=== PATIENT | female | born 1930 | race Caucasian/White ===

== ENCOUNTER 2019-01-01 00:58 | Inpatient (IN) ==
[2019-01-01 01:25] LABS: Basophils # 0.1 K/mm3 (0-0.2); Basophils % 0.7 % (0.1-2.0); Eosinophils # 0.2 K/mm3 (0.0-0.4); Eosinophils % 1.4 % (0.1-12.0); Hematocrit 36.4 % (37.0-47.0); Hemoglobin 11.8 g/dL (12.2-16.2); Lymphocytes % 18.1 % (10-50); Mean Corpuscular HGB Conc 32.4 g/dL (31.8-35.4); Mean Corpuscular Hemoglobin 31.7 pg (27.0-31.2); Mean Corpuscular Volume 97.8 fl (81-99); Monocytes # 0.6 K/mm3 (0.1-1.0); Monocytes % 5.5 % (1.7-9.3); Neutrophils # 8.1 K/mm3 (1.8-7.8); Neutrophils % 74.3 % (37.0-80.0); Platelet Count 192 K/mm3 (142-424); Red Blood Count 3.72 M/mm3 (4.20-5.40); Red Cell Distribution Width 13.1 % (11.5-17.5); White Blood Count 10.9 K/mm3 (4.8-10.8)
[2019-01-01 01:37] LABS: Albumin Level 3.2 gm/dL (3.4-5.0); Albumin/Globulin Ratio 0.8 (1.1-1.8); Anion Gap 11.9 mEq/L (5-15); Bilirubin,Total 0.5 mg/dL (0.2-1.0); Calcium 8.8 mg/dL (8.5-10.1); Globulin 4.1 gm/dl (1.3-3.2); Potassium 3.9 mmoL/L (3.5-5.1); Total Protein,Serum 7.3 gm/dL (6.4-8.2)
--- NOTE | 2019-01-01 01:40 | Emergency Department Note ---
ED Disposition Clinical Impression: History of cardiac pacemaker in situ Hip fracture Qualifiers: Encounter type: initial encounter Fracture type: closed Laterality: left Qualified Code(s): S72.002A - Fracture of unspecified part of neck of left femur, initial encounter for closed fracture Fall Qualifiers: Encounter type: initial encounter Qualified Code(s): W19.XXXA - Unspecified fall, initial encounter CKD (chronic kidney disease) Qualifiers: Chronic kidney disease stage: unspecified stage Qualified Code(s): N18.9 - Chronic kidney disease, unspecified Disposition: Admitted As Inpatient Condition on Discharge: Good - Critical Care Critical Care Time: No Attestation: On , the high probability of a clinically significant, sudden or life th reatening deterioration of the following system(s) required my full and direct attention, intervention and personal management. The time I documented below is in addition to time spent performing reported procedures but includes the following listed in this critical care notation. Medical Decision Making - Medical Records Medical records reviewed: Yes: I reviewed the patient's medical records. - Carlo Inquiry Pt receiving controlled substance: No Vital Signs: 01/01/19 00:59 01/01/19 01:30 Temperature 97.9 F Temperature Source Oral Pulse Rate [Right Brachial] 71 71 Respiratory Rate 16 16 Blood Pressure [Right Arm] 176/63 H 180/71 H Blood Pressure Mean [Right Arm] 100 107 Blood Pressure Source [Right Arm] Automatic Cuff Automatic Cuff Blood Pressure Position [Right Arm] Sitting Sitting 02 Sat by Pulse Oximetry 96 96 Oxygen Delivery Method Room Air Room Air - Lab Data Lab results reviewed: Yes: I reviewed the patient's lab results. Lab Results 01/01/19 01:15: WBC 10.9 H D, RBC 3.72 L, Hgb 11.8 L, Hct 36.4 L, MCV 97.8, MCH 31.7 H, MCHC 32.4, RDW 13.1, Plt Count 192, MPV 9.0, Neut % (Auto) 74.3, Lymph % (Auto) 18.1, [place] % (Auto) 5.5, Eos % (Auto) 1.4, Baso % (Auto) 0.7, Neut # (Auto) 8.1 H, Lymph # (Auto) 2.0, [place] # (Auto) 0.6, Eos # (Auto) 0.2, Baso # (Auto) 0.1 03/07/19 01:15: Sodium 139, Potassium 3.9, Chloride 102, Carbon Dioxide 29, Anion Gap 11.9, BUN 25 H, Creatinine 1.32 H, Estimated Creat Clear 28, Estimated GFR 38 L, Est GFR ( Amer) 46 L, Glucose 143 H D, Calcium 8.8, Total Bilirubin 0.5, AST 16, ALT 16, Alkaline Phosphatase 71, Troponin I 0.09 H, Total Protein 7.3, Albumin 3.2 L, Globulin 4.1 H, Albumin/Globulin Ratio 0.8 L Result diagrams: 01/01/19 01:15 01/01/19 01:15 Orders (Tests/Meds): ED MEDICATIONS Generic Name Dose Route Start Last Admin Trade Name Freq PRN Reason Stop Dose Admin Sodium Chloride 10 ml 01/01/19 01:11 Saline Flush 10ml Syringe IV 01/31/19 01:10 NEEDED PRN Maintain IV Site Discontinued Medications Generic Name Dose Route Start Last Admin Trade Name Freq PRN Reason Stop Dose Admin Morphine Sulfate 2 mg 01/01/19 03:00 01/01/19 03:01 Morphine 2mg/Ml Syringe IV 01/01/19 03:01 2 mg ONCE ONE Administration Ondansetron HCl 4 mg 01/01/19 03:00 01/01/19 03:01 Zofran 4mg/2ml Vial IV 01/01/19 03:01 4 mg ONCE ONE Administration ORDERS Category Date Time Status CT cervical spine wo con Stat Cat Scan 01/01/19 01:[address] pelvis wo con Stat Cat Scan 01/01/19 02:45 Taken UA [Urinalysis and Microscopic] Stat Lab 01/01/19 04:05 Ordered - Radiology Data #1 Image(s): Chest, Pelvis, Hip Image Reviewed: Yes I reviewed the patient's radiology image Preliminary Findings: No Fracture Seen - CT Data CT Scan: Head, C-Spine, Pelvis Time Received: 04:[address] Reviewed: Yes: I have viewed the radiologist's interpretation Preliminary Findings: Abnormal (hip fx ) - ECG Data Tracing #1 Arrhythmias present: other (pacemaker ) - Physician Consults Physician Consulted: santhosh Reason -: Pt condition Fall HPI - General Chief Complaint: Fall Stated Complaint: Fall Time Seen by Provider: 01/01/19 01:05 Mode of Arrival: Ambulatory Source of Information: Patient, Spouse, Relative, EMS, Medical Record Limitations: No Limitations Description of Symptoms (Recalled from ER Triage Doc. by RN): Pt was walking in her house using her walker, she thinks she may have passed out, and states she was dizzy before the fall. She is c/o left him pain. She denies any other pain or injuries. She does have a small spot on her chin, but denies pain there. She states the pain in her hip is only when she tries to move and is in no pain currently. - History of Present Illness HPI Narrative: pt with fall as she was walking with resultant lt hip pain - pt uncertain as to why she fell MD complaint: fall Onset (ago): hour(s) Fall from: standing, walking Fall witnessed: yes, by family Place fall occurred: home Loss of consciousness: none Prolonged down time: no Symptoms prior to fall: lightheadedness Location of injury - extremities: Left: thigh Severity: moderate Associated symptoms (after fall): denies - Related Data Home Medications Medication Instructions Recorded Confirmed aspirin 81 mg tablet,delayed 81 mg PO DAILY tab 01/14/18 12/30/18 release cholecalciferol (vitamin D3) 1,000 1,000 unit PO DAILY cap 01/14/18 12/30/18 unit capsule ergocalciferol (vitamin D2) 2,500 2,500 unit PO DAILY cap 01/14/18 12/30/18 unit capsule hydrochlorothiazide 25 mg tablet 25 mg PO DAILY 30 Days #30 tab 07/22/18 12/30/18 levothyroxine 100 mcg tablet 100 mcg PO DAILY 30 Days #30 tab 07/22/18 12/30/18 Acetaminophen [Tylenol 500mg 500 mg PO BID 08/28/18 12/30/18 tablet] ascorbic acid (vitamin C) 500 mg 500 mg PO DAILY cap 12/24/18 12/30/18 capsule Carvedilol [Carvedilol 12.5mg Tab] 12.5 mg PO BID 12/30/18 12/30/18 Atorvastatin Calcium [Atorvastatin 20 mg PO HS 12/31/18 12/31/18 20mg Tab] Clopidogrel Bisulfate [Plavix 75mg 75 mg PO DAILY 12/31/18 12/31/18 Tab] Allergies Allergy/AdvReac Type Severity Reaction Status Date / Time bisoprolol Allergy Severe UNKNOWN Verified 01/01/19 01:19 clonidine Allergy Severe ANGIOEDEMA Verified 01/01/19 01:19 metronidazole Allergy Severe SEIZURES Verified 01/01/19 01:19 desloratadine [From Clarinex] Allergy Intermediate "PASSED Verified 01/01/19 01:19 OUT" doxazosin Allergy Intermediate I-RASH Verified 01/01/19 01:19 rofecoxib [From Vioxx] Allergy Intermediate LIP Verified 01/01/19 01:19 SWELLING acetaminophen [From LORTAB] Allergy Unknown nausea and Verified 01/01/19 01:19 headache amoxicillin Allergy Unknown UNKNOWN Verified 01/01/19 01:19 ciprofloxacin [From Cipro] Allergy Unknown UNKNOWN Verified 01/01/19 01:19 clarithromycin [From Biaxin] Allergy Unknown UNKNOWN Verified 01/01/19 01:19 codeine Allergy Unknown UNKNOWN Verified 01/01/19 01:19 diltiazem [From Cardizem] Allergy Unknown UNKNOWN Verified 01/01/19 01:19 duloxetine [From Cymbalta] Allergy Unknown UNKNOWN Verified 01/01/19 01:19 erythromycin base Allergy Unknown UNKNOWN Verified 01/01/19 01:19 ethacrynic acid Allergy Unknown UNKNOWN Verified 01/01/19 01:19 [From Edecrin] felodipine [From Plendil] Allergy Unknown UNKNOWN Verified 01/01/19 01:19 gabapentin [GABAPENTIN] Allergy Unknown swelling Verified 01/01/19 01:19 hydralazine [From Apresoline] Allergy Unknown UNKNOWN Verified 01/01/19 01:19 hydrochlorothiazide Allergy Unknown UNKNOWN Verified 01/01/19 01:19 [From Zestoretic] levofloxacin [From LEVAQUIN] Allergy Unknown Headache Verified 01/01/19 01:19 lisinopril [From Zestoretic] Allergy Unknown UNKNOWN Verified 01/01/19 01:19 nabumetone Allergy Unknown UNKNOWN Verified 01/01/19 01:19 nitrofurantoin Allergy Unknown UNKNOWN Verified 01/01/19 01:19 [From Macrodantin] omeprazole [From Prilosec] Allergy Unknown UNKNOWN Verified 01/01/19 01:19 pentazocine [From Talwin] Allergy Unknown UNKNOWN Verified 01/01/19 01:19 Sulfa (Sulfonamide Allergy Unknown UNKNOWN Verified 01/01/19 01:19 Antibiotics) telmisartan [From Micardis] Allergy Unknown UNKNOWN Verified 01/01/19 01:19 tetracycline Allergy Unknown UNKNOWN Verified 01/01/19 01:19 tolmetin [From Tolectin] Allergy Unknown UNKNOWN Verified 01/01/19 01:19 tramadol Allergy Unknown UNKNOWN Verified 01/01/19 01:19 ertapenem [From Invanz] AdvReac Severe seizures Verified 01/01/19 01:19 hydrocodone AdvReac Mild NA-NAUSEA/V Verified 01/01/19 01:19 OMITING nifedipine AdvReac Mild SWELLING Verified 01/01/19 01:[address] [facility] History - Hepatitis A Screen Drug use history?: No High risk sexual behaviors?: No History of sexually transmitted infection?: No Currently employed?: No Childcare worker?: No Do you have indoor plumbing?: Yes Do you have electricity?: Yes Attestation statement:: This patient has been screened for Hepatitis A risk factors. I have reviewed the patient's past medical history: Yes Medical History: Reports:: Atrial Fibrillation, Congestive Heart Failure, Hypertension, Internal Pacemaker, Seizures Denies:: Cancer, Diabetes Mellitus Type 1, Diabetes Mellitus Type 2, MRSA Other Medical History: Reports: Arthritis, Hypothyroidism. Denies: Blood Transfusion Reaction Laterality Cases: Left: Arthroscopy Knee, Right: Total Hip Replacement Other Surgeries: Yes: Cardiac Catheterization (1995), Cholecystectomy, Hernia Repair (Oct 1993), Hysterectomy-Total (December 1991), Pacemaker, Tubal Ligation ( Oct 1962), Other Amputation: No Fractures: No Comment: EXPLORATORY Surgery 1997 - Social History Smoking Status: Never smoker # Packs/Day (cigarettes): 0 #Yrs smoked (if former smoker): 0 Alcohol Intake: never Alcohol Intake Frequency:: other Substance Use Type: denies use Occupational Status: retired Housing: house Household Members: spouse - Psychiatric History Expresses thoughts of harming self/others: None Suicide Plan Description: No Plan Family Hx:: Hypertension ROS Obtained: Yes All systems reviewed & no additional complaints - Constitutional Constitutional: Denies fever(s) - Eyes Eyes: Denies eye discharge - ENT Ears, Nose, Mouth, and Throat: Denies sore throat - Cardiovascular Cardiovascular: Denies chest pain - Respiratory Respiratory: No cough - Gastrointestinal Gastrointestingal: Denies: abdominal pain - Genitourinary Female Genitourinary: Denies hematuria - Musculoskeletal Musculoskeletal: Reports as per HPI, Reports joint pain, Reports joint swelling, Reports limited range of motion - Integumentary/Breasts Skin/Breast: Denies rash - Neurologic Neurologic: Denies seizure-like activity Physical Exam - General General appearance: alert - Head Head exam: normocephalic - Eye Eye exam: Present: PERRL, EOMI - ENT ENT exam: Present: mucous membranes dry - Neck Neck exam: Present: trachea midline - Respiratory Respiratory exam: Present: normal lung sounds bilaterally. Absent: respiratory distress - Cardiovascular Cardiovascular exam: Present: regular rate, systolic murmur, +S4 - Abdominal Exam Abdominal exam: Present: soft - Expanded Lower Extremity Exam Left Hip/Pelvis exam: Present: tenderness, pelvis stable, pain on hip/pelvis palpation, hip pain on leg movement - Neurological Exam Neurological exam: Present: alert, oriented X3, CN II-XII intact - Psychiatric Psychiatric exam: Present: normal affect - Skin Skin exam: Absent: rash
[2019-01-01 04:23] LABS: Microscopic, Urine URINE MICROSCOPIC (MICROSCOPIC)
[2019-01-01 04:25] LABS: Appearance,Urine CLEAR (Clear); Bilirubin,Urine Negative (Negative); Blood, Urine TRACE-I (Negative); Color,Urine YELLOW (Yellow); Glucose,Urine (UA) TRACE (Negative); Ketones,Urine Negative (Negative); Leukocyte Esterase,Urine Negative (Negative); Protein,Urine Negative (Negative); Urobilinogen,Urine 0.2 EU/dl (0.2)
[2019-01-01 04:37] LABS: Bacteria,Urine Trace /lpf; WBC,Urine Occasional #/hpf (0-3)
--- NOTE | 2019-01-01 07:37 | Pharmacy Consult Notes ---
[facility] Pharmacy VTE Monitoring - Patient Demographics Admission date: 01/01/19 Report Date: 01/01/19 Time: 07:37 Allergies/Adverse Reactions: Patient Allergies bisoprolol Allergy (Severe, Verified 01/01/19 01:19) UNKNOWN clonidine Allergy (Severe, Verified 01/01/19 01:19) ANGIOEDEMA metronidazole Allergy (Severe, Verified 01/01/19 01:19) SEIZURES desloratadine [From Clarinex] Allergy (Intermediate, Verified 01/01/19 01:19) "PASSED OUT" doxazosin Allergy (Intermediate, Verified 01/01/19 01:19) I-RASH rofecoxib [From Vioxx] Allergy (Intermediate, Verified 01/01/19 01:19) LIP SWELLING acetaminophen [From LORTAB] Allergy (Unknown, Verified 01/01/19 01:19) nausea and headache amoxicillin Allergy (Unknown, Verified 01/01/19 01:19) UNKNOWN ciprofloxacin [From Cipro] Allergy (Unknown, Verified 01/01/19 01:19) UNKNOWN clarithromycin [From Biaxin] Allergy (Unknown, Verified 01/01/19 01:19) UNKNOWN codeine Allergy (Unknown, Verified 01/01/19 01:19) UNKNOWN diltiazem [From Cardizem] Allergy (Unknown, Verified 01/01/19 01:19) UNKNOWN duloxetine [From Cymbalta] Allergy (Unknown, Verified 01/01/19:19) UNKNOWN erythromycin base Allergy (Unknown, Verified 01/01/19 01:19) UNKNOWN ethacrynic acid [From Edecrin] Allergy (Unknown, Verified 01/01/19 01:19) UNKNOWN felodipine [From Plendil] Allergy (Unknown, Verified 01/01/19 01:19) UNKNOWN gabapentin [GABAPENTIN] Allergy (Unknown, Verified 01/01/19 01:19) swelling hydralazine [From Apresoline] Allergy (Unknown, Verified 01/01/19 01:19) UNKNOWN hydrochlorothiazide [From Zestoretic] Allergy (Unknown, Verified 01/01/19:19) UNKNOWN levofloxacin [From LEVAQUIN] Allergy (Unknown, Verified 01/01/19 01:19) Headache lisinopril [From Zestoretic] Allergy (Unknown, Verified 01/01/19 01:19) UNKNOWN nabumetone Allergy (Unknown, Verified 01/01/19:19) UNKNOWN nitrofurantoin [From Macrodantin] Allergy (Unknown, Verified 01/01/19:19) UNKNOWN omeprazole [From Prilosec] Allergy (Unknown, Verified 01/01/19:) UNKNOWN pentazocine [From Talwin] Allergy (Unknown, Verified 01/01/19:19) UNKNOWN Sulfa (Sulfonamide Antibiotics) Allergy (Unknown, Verified 01/01/19:19) UNKNOWN telmisartan [From Micardis] Allergy (Unknown, Verified 01/01/19:19) UNKNOWN tetracycline Allergy (Unknown, Verified 01/01/19:19) UNKNOWN tolmetin [From Tolectin] Allergy (Unknown, Verified 01/01/19:) UNKNOWN tramadol Allergy (Unknown, Verified 01/01/19:) UNKNOWN ertapenem [From Invanz] Adverse Reaction (Severe, Verified 01/01/19:) seizures hydrocodone Adverse Reaction (Mild, Verified 01/01/19:) NA-NAUSEA/VOMITING nifedipine Adverse Reaction (Mild, Verified 01/01/19:) SWELLING Height: 1.65 m Weight: 61.745 kg Patient Problems: Current Active Problems Hip fracture (Acute) Fall (Acute) CKD (chronic kidney disease) (Chronic) History of cardiac pacemaker in situ (Acute) - VTE Risk Labs: VTE Related Lab Results Hgb 11.8 g/dL (12.2-16.2) L 01/01/19 01:15 Hct 36.4 % (37.0-47.0) L 01/01/19 01:15 Plt Count 192 K/mm3 (142-424) 01/01/19 01:15 BUN 25 mg/dL (7-18) H 01/01/19 01:15 Creatinine 1.32 mg/dL (0.55-1.02) H 01/01/19 01:15 Estimated Creat Clear 28 mL/min (50-200) 01/01/19 01:15 VTE Score: 5 VTE Risk Level: Low Risk - Prophylaxis VTE Prophylaxis Ordered?: Yes Types of VTE Prophylaxis: TEDS Knee High Location of Applied Device: Bilateral Lower Extremeties - VTE Diagnosis Confirmed Treatment or plan recommended: Continue Current Treatment
--- NOTE | 2019-01-01 09:05 | Consult Report ---
History of Present Illness Consult date: 01/01/19 Requesting physician: Lalit Weiner Consult reason: pre-op evaluation Chief complaint: Left hip pain Additional Medical History:: 1. Renal artery stenosis A. Bilateral renal artery stenting, 12/31/18 2. Hypertension 3. Status post right hip replacement and left hip pinning 4. History of 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 PAF with total AF burden <1%. Controlled with beta zeny therapy 5. Hyperlipidemia, on statin History of present illness: 88-year-old white female admitted through the emergency department for left hip fracture after fall. Patient received bilateral renal artery stents yesterday. After patient returned home, she and her fell asleep in their chairs and upon waking later on decided to go to bed. In route to bed, patient became dizzy and fell. She denies chest pain, pressure or tightness. She denies any loss of consciousness. 911 was called and EMS transported patient to the emergency department. Patient was found to have left hip fracture and subsequently admitted for treatment. Cardiology consulted for preop evaluation. Patient denies any chest pain, pressure or tightness this a.m. She does relate some soreness and hip and neck area where she believes she struck a knob on one of her chest of drawers during the fall. [facility] History Medical History: Reports:: Atrial Fibrillation, Congestive Heart Failure, Hypertension, Internal Pacemaker, Seizures Denies:: Cancer, Diabetes Mellitus Type 1, Diabetes Mellitus Type 2, MRSA *Have you ever received a pneumonia vaccine?: Yes *Have you received a flu vaccine this season?: Yes Other Medical History: Reports: Arthritis, Hypothyroidism. Denies: Blood Transfusion Reaction Laterality Cases: Left: Arthroscopy Knee, Right: Total Hip Replacement Other Surgeries: Yes: Cardiac Catheterization (1995), Cholecystectomy, Hernia Repair (Oct 1993), Hysterectomy-Total (December 1991), Pacemaker, Tubal Ligation (Oct 1962), Other Amputation: No Fractures: No - *Social History Educational Level: Completed High School Smoking Status: Never smoker # Packs/Day (cigarettes): 0 #Yrs smoked (if former smoker): 0 Alcohol Intake: never Alcohol Intake Frequency:: other Substance Use Type: denies use *Occupational Status:: retired Housing: house Household Members: spouse *Travel in the last 8 weeks: None - Psychiatric History Expresses thoughts of harming self/others: None Suicide Plan Description: No Plan Family Hx:: Hypertension Meds Home Medications Medication Instructions Recorded Confirmed Type aspirin 81 mg tablet,delayed 81 mg PO DAILY tab 01/14/18 01/01/19 History release cholecalciferol (vitamin D3) 1,000 1,000 unit PO DAILY cap 01/14/18 01/01/19 History unit capsule ergocalciferol (vitamin D2) 2,500 2,500 unit PO DAILY cap 01/14/18 01/01/19 History unit capsule hydrochlorothiazide 25 mg tablet 25 mg PO DAILY 30 Days #30 tab 07/22/18 01/01/19 History levothyroxine 100 mcg tablet 100 mcg PO DAILY 30 Days #30 tab 07/22/18 01/01/19 History ascorbic acid (vitamin C) 500 mg 500 mg PO DAILY cap 12/24/18 01/01/19 History capsule Carvedilol [Carvedilol 12.5mg Tab] 12.5 mg PO BID 12/30/18 01/01/19 History Atorvastatin Calcium [Atorvastatin 20 mg PO HS 12/31/18 01/01/19 History 20mg Tab] Clopidogrel Bisulfate [Plavix 75mg 75 mg PO DAILY 12/31/18 01/01/19 History Tab] Acetaminophen 500 mg PO BID 01/01/19 01/01/19 History Potassium Chloride [Klor-Con 10mEq 10 meq PO BID 01/01/19 01/01/19 History tab] Allergies Allergy/AdvReac Type Severity Reaction Status Date / Time bisoprolol Allergy Severe UNKNOWN Verified 01/01/19 01:19 clonidine Allergy Severe ANGIOEDEMA Verified 01/01/19 01:19 metronidazole Allergy Severe SEIZURES Verified 01/01/19 01:19 desloratadine [From Clarinex] Allergy Intermediate "PASSED Verified 01/01/19 01:19 OUT" doxazosin Allergy Intermediate I-RASH Verified 01/01/19 01:19 rofecoxib [From Vioxx] Allergy Intermediate LIP Verified 01/01/19 01:19 SWELLING amoxicillin Allergy Unknown UNKNOWN Verified 01/01/19 01:19 ciprofloxacin [From Cipro] Allergy Unknown UNKNOWN Verified 01/01/19 01:19 clarithromycin [From Biaxin] Allergy Unknown UNKNOWN Verified 01/01/19 01:19 codeine Allergy Unknown UNKNOWN Verified 01/01/19 01:19 diltiazem [From Cardizem] Allergy Unknown UNKNOWN Verified 01/01/19 01:19 duloxetine [From Cymbalta] Allergy Unknown UNKNOWN Verified 01/01/19 01:19 erythromycin base Allergy Unknown UNKNOWN Verified 01/01/19 01:19 ethacrynic acid Allergy Unknown UNKNOWN Verified 01/01/19 01:19 [From Edecrin] felodipine [From Plendil] Allergy Unknown UNKNOWN Verified 01/01/19 01:19 gabapentin [GABAPENTIN] Allergy Unknown swelling Verified 01/01/19 01:19 hydralazine [From Apresoline] Allergy Unknown UNKNOWN Verified 01/01/19 01:19 levofloxacin [From LEVAQUIN] Allergy Unknown Headache Verified 01/01/19 01:19 lisinopril [From Zestoretic] Allergy Unknown UNKNOWN Verified 01/01/19 01:19 nabumetone Allergy Unknown UNKNOWN Verified 01/01/19 01:19 nitrofurantoin Allergy Unknown UNKNOWN Verified 01/01/19 01:19 [From Macrodantin] omeprazole [From Prilosec] Allergy Unknown UNKNOWN Verified 01/01/19 01:19 pentazocine [From Talwin] Allergy Unknown UNKNOWN Verified 01/01/19 01:19 Sulfa (Sulfonamide Allergy Unknown UNKNOWN Verified 01/01/19 01:19 Antibiotics) telmisartan [From Micardis] Allergy Unknown UNKNOWN Verified 01/01/19 01:19 tetracycline Allergy Unknown UNKNOWN Verified 01/01/19 01:19 tolmetin [From Tolectin] Allergy Unknown UNKNOWN Verified 01/01/19 01:19 tramadol Allergy Unknown UNKNOWN Verified 01/01/19 01:19 ertapenem [From Invanz] AdvReac Severe seizures Verified 01/01/19 01:19 hydrocodone AdvReac Mild NA-NAUSEA/V Verified 01/01/19 01:19 OMITING nifedipine AdvReac Mild SWELLING Verified 01/01/19 01:19 Review of Systems - *Cardiovascular Denies chest pain, Denies shortness of breath, Denies shortness of breath with activity - *Respiratory Denies cough, Denies shortness of breath - *Gastrointestinal Denies abdominal pain, Denies loose stools - *Genitourinary Denies difficulty urinating, Denies painful urination - *Musculoskeletal Reports joint pain - *Neurologic Denies seizure-like activity Exam Vital signs and Labs for Last 24 Hours: Temp Pulse Resp BP Pulse Ox 97.6 F 71 16 130/58 L 95 01/01/19 07:37 01/01/19 07:37 01/01/19 07:37 01/01/19 07:37 01/01/19 07:37 Laboratory Results - last 24 hr 01/01/19 01:15: WBC 10.9 H D, RBC 3.72 L, Hgb 11.8 L, Hct 36.4 L, MCV 97.8, MCH 31.7 H, MCHC 32.4, RDW 13.1, Plt Count 192, MPV 9.0, Neut % (Auto) 74.3, Lymph % (Auto) 18.1, [place] % (Auto) 5.5, Eos % (Auto) 1.4, Baso % (Auto) 0.7, Neut # (Auto) 8.1 H, Lymph # (Auto) 2.0, [place] # (Auto) 0.6, Eos # (Auto) 0.2, Baso # (Auto) 0.1 01/01/19 01:15: Sodium 139, Potassium 3.9, Chloride 102, Carbon Dioxide 29, Anion Gap 11.9, BUN 25 H, Creatinine 1.32 H, Estimated Creat Clear 28, Estimated GFR 38 L, Est GFR ( Amer) 46 L, Glucose 143 H D, Calcium 8.8, Total Bilirubin 0.5, AST 16, ALT 16, Alkaline Phosphatase 71, Troponin I 0.09 H, Total Protein 7.3, Albumin 3.2 L, Globulin 4.1 H, Albumin/Globulin Ratio 0.8 L 01/01/19 03:51: Urine Color Yellow, Urine Appearance Clear, Urine pH 7.0, Ur Specific [place] 1.010, Urine Protein Negative, Urine Glucose (UA) Trace, Urine Ketones Negative, Urine Blood Trace-i, Urine Nitrate Negative, Urine Bilirubin Negative, Urine Urobilinogen 0.2, Ur Leukocyte Esterase Negative, Urine WBC Occasional, Urine Bacteria Trace I & O for Last 24 hours: Intake & Output 12/29/18 12/30/18 12/31/18 01/01/19 11:59 11:59 11:59 11:59 Intake Total 0 / 0 Balance 0 / 0 Weight 136 lb 2 oz - *Routine Neck Exam Present: supple. Absent: JVD, carotid bruit - *Routine Respiratory Exam Present: CTA bilaterally. Absent: accessory muscle use, rales, rhonchi, wheezes - *Routine Cardiovascular Exam Present: RRR. Absent: murmur, gallop, rubs - *Routine Abdominal Exam Present: soft. Absent: tenderness, distended, guarding - *Routine Extremities Exam Absent: edema, calf tenderness - *Routine Neurological Exam Present: alert, oriented X3, moving all extremities Assessment and Plan (1) Fall Current visit: Yes Status: Acute Qualifiers: Encounter type: initial encounter Qualified Code(s): W19.XXXA - Unspecified fall, initial encounter Category: Medical Code(s): W19.XXXA - Unspecified fall, initial encounter (2) Hip fracture Current visit: Yes Status: Acute Qualifiers: Encounter type: initial encounter Fracture type: closed Laterality: left Qualified Code(s): S72.002A - Fracture of unspecified part of neck of left femur, initial encounter for closed fracture Category: Medical Code(s): S72.009A - Fracture of unspecified part of neck of unspecified femur, initial encounter for closed fracture (3) History of cardiac pacemaker in situ Current visit: Yes Status: Acute Category: Medical Code(s): Z95.0 - Presence of cardiac pacemaker (4) Hypertensive heart disease without heart failure Current visit: No Status: Acute Category: Medical Code(s): I11.9 - Hypertensive heart disease without heart failure (5) Mitral valve regurgitation Current visit: No Status: Chronic Qualifiers: Cardiac valve disease etiology: etiology unspecified Qualified Code(s): I34.0 - Nonrheumatic mitral (valve) insufficiency Category: Medical Code(s): I34.0 - Nonrheumatic mitral (valve) insufficiency - Assessment and plan all Dx Assessment and Plan for all problems:: 1. Echo today shows near normal LVEF with moderate aortic insufficiency and mild to moderate mitral regurgitation. 2. Interrogated pacemaker today with no alerts/arrhythmias noted. Biventricular pacing >99%. No changes made. Functioning appropriately. 3. OK from a cardiology standpoint to proceed with surgery. 4. Pt did receive plavix 300 mg yesterday during the renal stenting. If no surgery planned then resume plavix 75 mg daily for one month only.
--- NOTE | 2019-01-01 09:30 | History & Physical Report ---
*Admission Date: 01/01/19 *Chief complaint: fall, hip pain *History of present illness: 88-year-old white female admitted through the emergency department for left hip fracture after fall. Patient received bilateral renal artery stents yesterday. After patient returned home she and her fell asleep in their chairs and upon waking later on decided to go to bed. In route to bed patient became dizzy and fell. She denies chest pain, pressure or tightness. She denies any loss of consciousness. 911 was called and EMS transported patient to the emergency department. Patient was found to have left hip fracture and subsequently admitted for treatment. Cardiology consulted for preop evaluation. Patient denies any chest pain, pressure or tightness this a.m. She does relate some soreness and hip and neck area where she believes she struck a knob on one of her chest of drawers during the fall. Above per GORDON Swan- Cardiology, much appreciated [facility] History I have reviewed the patient's past medical history: Yes Medical History: Reports:: Atrial Fibrillation, Congestive Heart Failure, Hypertension, Internal Pacemaker, Seizures Denies:: Cancer, Diabetes Mellitus Type 1, Diabetes Mellitus Type 2, MRSA *Have you ever received a pneumonia vaccine?: Yes *Have you received a flu vaccine this season?: Yes Other Medical History: Reports: Arthritis, Hypothyroidism. Denies: Blood Transfusion Reaction Laterality Cases: Left: Arthroscopy Knee, Right: Total Hip Replacement Other Surgeries: Yes: Cardiac Catheterization (1995), Cholecystectomy, Hernia Repair (Oct 1993), Hysterectomy-Total (December 1991), Pacemaker, Tubal Ligation (Oct 1962), Other Amputation: No Fractures: No - *Social History Educational Level: Completed High School Smoking Status: Never smoker # Packs/Day (cigarettes): 0 #Yrs smoked (if former smoker): 0 Alcohol Intake: never Alcohol Intake Frequency:: other Substance Use Type: denies use *Occupational Status:: retired Housing: house Household Members: spouse *Travel in the last 8 weeks: None - Psychiatric History Expresses thoughts of harming self/others: None Suicide Plan Description: No Plan Family Hx:: Hypertension Review of Systems - Review of Systems Review of systems:: pertinent systems reviewed and negative unless documented below - *Cardiovascular Reports other (See HPI) - *Musculoskeletal Reports joint pain - *Neurologic Denies seizure-like activity Meds Home Medications Medication Instructions Recorded Confirmed Type aspirin 81 mg tablet,delayed 81 mg PO DAILY tab 01/14/18 01/01/19 History release cholecalciferol (vitamin D3) 1,000 1,000 unit PO DAILY cap 01/14/18 01/01/19 History unit capsule ergocalciferol (vitamin D2) 2,500 2,500 unit PO DAILY cap 01/14/18 01/01/19 History unit capsule hydrochlorothiazide 25 mg tablet 25 mg PO DAILY 30 Days #30 tab 07/22/18 01/01/19 History levothyroxine 100 mcg tablet 100 mcg PO DAILY 30 Days #30 tab 07/22/18 01/01/19 History ascorbic acid (vitamin C) 500 mg 500 mg PO DAILY cap 12/24/18 01/01/19 History capsule Carvedilol [Carvedilol 12.5mg Tab] 12.5 mg PO BID 12/30/18 01/01/19 History Atorvastatin Calcium [Atorvastatin 20 mg PO HS 12/31/18 01/01/19 History 20mg Tab] Clopidogrel Bisulfate [Plavix 75mg 75 mg PO DAILY 12/31/18 01/01/19 History Tab] Acetaminophen 500 mg PO BID 01/01/19 01/01/19 History Potassium Chloride [Klor-Con 10mEq 10 meq PO BID 01/01/19 01/01/19 History tab] Allergies Allergy/AdvReac Type Severity Reaction Status Date / Time bisoprolol Allergy Severe UNKNOWN Verified 01/01/19 01:19 clonidine Allergy Severe ANGIOEDEMA Verified 01/01/19 01:19 metronidazole Allergy Severe SEIZURES Verified 01/01/19 01:19 desloratadine [From Clarinex] Allergy Intermediate "PASSED Verified 01/01/19 01:19 OUT" doxazosin Allergy Intermediate I-RASH Verified 01/01/19 01:19 rofecoxib [From Vioxx] Allergy Intermediate LIP Verified 01/01/19 01:19 SWELLING amoxicillin Allergy Unknown UNKNOWN Verified 01/01/19 01:19 ciprofloxacin [From Cipro] Allergy Unknown UNKNOWN Verified 01/01/19 01:19 clarithromycin [From Biaxin] Allergy Unknown UNKNOWN Verified 01/01/19 01:19 codeine Allergy Unknown UNKNOWN Verified 01/01/19 01:19 diltiazem [From Cardizem] Allergy Unknown UNKNOWN Verified 01/01/19 01:19 duloxetine [From Cymbalta] Allergy Unknown UNKNOWN Verified 01/01/19 01:19 erythromycin base Allergy Unknown UNKNOWN Verified 01/01/19 01:19 ethacrynic acid Allergy Unknown UNKNOWN Verified 01/01/19 01:19 [From Edecrin] felodipine [From Plendil] Allergy Unknown UNKNOWN Verified 01/01/19 01:19 gabapentin [GABAPENTIN] Allergy Unknown swelling Verified 01/01/19 01:19 hydralazine [From Apresoline] Allergy Unknown UNKNOWN Verified 01/01/19 01:19 levofloxacin [From LEVAQUIN] Allergy Unknown Headache Verified 01/01/19 01:19 lisinopril [From Zestoretic] Allergy Unknown UNKNOWN Verified 01/01/19 01:19 nabumetone Allergy Unknown UNKNOWN Verified 01/01/19 01:19 nitrofurantoin Allergy Unknown UNKNOWN Verified 01/01/19 01:19 [From Macrodantin] omeprazole [From Prilosec] Allergy Unknown UNKNOWN Verified 01/01/19 01:19 pentazocine [From Talwin] Allergy Unknown UNKNOWN Verified 01/01/19 01:19 Sulfa (Sulfonamide Allergy Unknown UNKNOWN Verified 01/01/19 01:19 Antibiotics) telmisartan [From Micardis] Allergy Unknown UNKNOWN Verified 01/01/19 01:19 tetracycline Allergy Unknown UNKNOWN Verified 01/01/19 01:19 tolmetin [From Tolectin] Allergy Unknown UNKNOWN Verified 01/01/19 01:19 tramadol Allergy Unknown UNKNOWN Verified 01/01/19 01:19 ertapenem [From Invanz] AdvReac Severe seizures Verified 01/01/19 01:19 hydrocodone AdvReac Mild NA-NAUSEA/V Verified 01/01/19 01:19 OMITING nifedipine AdvReac Mild SWELLING Verified 01/01/19 01:19 Exam Vital signs and Labs for Last 24 Hours: Temp Pulse Resp BP Pulse Ox 97.6 F 71 16 130/58 L 95 01/01/19 07:37 01/01/19 07:37 01/01/19 07:37 01/01/19 07:37 01/01/19 07:37 Laboratory Results - last 24 hr 01/01/19 01:15: WBC 10.9 H D, RBC 3.72 L, Hgb 11.8 L, Hct 36.4 L, MCV 97.8, MCH 31.7 H, MCHC 32.4, RDW 13.1, Plt Count 192, MPV 9.0, Neut % (Auto) 74.3, Lymph % (Auto) 18.1, [place] % (Auto) 5.5, Eos % (Auto) 1.4, Baso % (Auto) 0.7, Neut # (Auto) 8.1 H, Lymph # (Auto) 2.0, [place] # (Auto) 0.6, Eos # (Auto) 0.2, Baso # (Auto) 0.1 01/01/19 01:15: Sodium 139, Potassium 3.9, Chloride 102, Carbon Dioxide 29, Anion Gap 11.9, BUN 25 H, Creatinine 1.32 H, Estimated Creat Clear 28, Estimated GFR 38 L, Est GFR ( Amer) 46 L, Glucose 143 H D, Calcium 8.8, Total Bilirubin 0.5, AST 16, ALT 16, Alkaline Phosphatase 71, Troponin I 0.09 H, Total Protein 7.3, Albumin 3.2 L, Globulin 4.1 H, Albumin/Globulin Ratio 0.8 L 01/01/19 03:51: Urine Color Yellow, Urine Appearance Clear, Urine pH 7.0, Ur Specific [place] 1.010, Urine Protein Negative, Urine Glucose (UA) Trace, Urine Ketones Negative, Urine Blood Trace-i, Urine Nitrate Negative, Urine Bilirubin Negative, Urine Urobilinogen 0.2, Ur Leukocyte Esterase Negative, Urine WBC Occasional, Urine Bacteria Trace I & O for Last 24 hours: Intake & Output 12/29/18 12/30/18 12/31/18 01/01/19 11:59 11:59 11:59 11:59 Intake Total 0 / 0 Balance 0 / 0 Weight 136 lb 2 oz Narrative: ALert and oriented x3. Rate and rhythm regular, no murmur. Lung sounds clear and equal. ENT exam unremarkable. Abdomen soft and nontender. No LE edema. Pulse, motor and sensation equal bilaterally in LE. Skin, pink, warm and dry Assessment and Plan (1) Essential (primary) hypertension Current visit: Yes Status: Chronic Category: Medical Code(s): I10 - Essential (primary) hypertension (2) Shortness of breath on exertion Current visit: Yes Status: Chronic Category: Medical Code(s): R06.02 - Shortness of breath (3) Hypertensive heart disease without heart failure Current visit: Yes Status: Chronic Category: Medical Code(s): I11.9 - Hypertensive heart disease without heart failure (4) Fall Current visit: Yes Status: Acute Qualifiers: Encounter type: initial encounter Qualified Code(s): W19.XXXA - Unspecified fall, initial encounter Category: Medical Code(s): W19.XXXA - Unspecified fall, initial encounter (5) Hip fracture Current visit: Yes Status: Acute Qualifiers: Encounter type: initial encounter Fracture type: closed Laterality: left Qualified Code(s): S72.002A - Fracture of unspecified part of neck of left femur, initial encounter for closed fracture Category: Medical Code(s): S72.009A - Fracture of unspecified part of neck of unspecified femur, initial encounter for closed fracture (6) History of cardiac pacemaker in situ Current visit: Yes Status: Acute Category: Medical Code(s): Z95.0 - Presence of cardiac pacemaker (7) CKD (chronic kidney disease) Current visit: Yes Status: Chronic Qualifiers: Chronic kidney disease stage: unspecified stage Qualified Code(s): N18.9 - Chronic kidney disease, unspecified Category: Medical Code(s): N18.9 - Chronic kidney disease, unspecified (8) Atrial fibrillation Current visit: No Status: Chronic Qualifiers: Atrial fibrillation type: paroxysmal Qualified Code(s): I48.0 - Paroxysmal atrial fibrillation Category: Medical Code(s): I48.91 - Unspecified atrial fibrillation (9) Cardiac pacemaker in situ Current visit: No Status: Chronic Category: Medical Code(s): Z95.0 - Presence of cardiac pacemaker (10) History of DVT (deep vein thrombosis) Current visit: No Status: Chronic Category: Medical Code(s): Z86.718 - Personal history of other venous thrombosis and embolism - Assessment and plan all Dx Assessment and Plan for all problems:: Cardiology consulted for cardiac clearance, may proceed with surgery from our standpoint if cleared by cardiology. Awaiting orthopedic evaluation for further recommendations.
--- NOTE | 2019-01-01 13:47 | Progress Note ---
[facility] Anesthesia Checklist - Structural Data Admitted From: Inpatient Planned Operative Procedure/s: gamma nail l hip Consent for Planned Operative Procedure(s) Verified: Yes - Airway Assessment C-Spine Mobility Assessed: Yes TMJ Mobility Assessed: Yes Dentition: Partials - Neurological Assessment Level of Consciousness: Awake, Alert, Appropriate - Anesthesia Plan Anesthesia Risk discussed: Yes Anesthesia Plan: Verified ASA Class: III Anesthesia Type: General [facility] History I have reviewed the patient's past medical history: Yes (explained risks of general anesthesia, pt understands) Medical History: Reports:: Atrial Fibrillation, Congestive Heart Failure, Hypertension, Internal Pacemaker, Seizures Denies:: Cancer, Diabetes Mellitus Type 1, Diabetes Mellitus Type 2, MRSA *Have you ever received a pneumonia vaccine?: Yes *Have you received a flu vaccine this season?: Yes Other Medical History: Reports: Arthritis, Hypothyroidism. Denies: Blood Transfusion Reaction Laterality Cases: Left: Arthroscopy Knee, Right: Total Hip Replacement Other Surgeries: Yes: Cardiac Catheterization (1995), Cholecystectomy, Hernia Repair (Oct 1993), Hysterectomy-Total (December 1991), Pacemaker, Tubal Ligation (Oct 1962), Other Amputation: No Fractures: No - *Social History Educational Level: Completed High School Smoking Status: Never smoker # Packs/Day (cigarettes): 0 #Yrs smoked (if former smoker): 0 Alcohol Intake: never Alcohol Intake Frequency:: other Substance Use Type: denies use *Occupational Status:: retired Housing: house Household Members: spouse *Travel in the last 8 weeks: None - Psychiatric History Expresses thoughts of harming self/others: None Suicide Plan Description: No Plan Family Hx:: Hypertension
--- NOTE | 2019-01-01 17:08 | Cardiology Report ---
PROCEDURE: 2-D M-mode and color Doppler study INDICATIONS FOR THE TEST: Chest pain COPD Heart Murmur Tobacco Smoking Palpitations Fatigue Syncope+ Edema Hypertension+Diabetes Mellitus Rheumatic Fever SOB+MEJÍA+Obesity Hyperlipidemia+ Family History HD Additional History Mod-severe MR, Pacemaker, hx of AFIB, CHF, preop clearance lt hip fracture PATIENT INFORMATION HEIGHT: 65 WEIGHT: 136 GENDER: Female B/P: 130/58 2-D/M-MODE INTERPRETATION: 2-D MEASUREMENTS OBSERVED VALUES IN CMS Right Ventricular Dimension (RVDd) 1.7 Interventricular Septum (Thickness)(IVsd) 0.8 Left Ventricular Internal Dimensions(LVIDd) 5.2 Left Ventricular Posterior Wall (Thickness)(LVPWd) 0.9 Aortic Root 3.6 Aortic Cusp Separation 1.7 Left Atrial Dimensions (LAD) 4.2 2D 1. Left atrium is mildly enlarged, left ventricle is normal size, mild concentric left ventricular hypertrophy, visually estimated ejection fraction 50% with no regional wall motion abnormality. 2. The right atrium and right ventricle are normal size and contractility, there is a pacemaker lead seen in the right atrium and right ventricle. 3. The aortic valve is thickened and leaflets continue to display good mobility. 4. The mitral and tricuspid valve leaflets are minimally thickened 5. The pulmonic valve is poorly visualized. 6. No significant pericardial effusion noted. DOPPLER INTERROGATION: Doppler interrogation of the aortic, mitral and tricuspid valvular presence of moderate aortic, mild mitral and mild tricuspid regurgitation, tricuspid regurgitation jet velocity is inadequate for calculation of the right ventricular systolic pressure, grade 1 diastolic dysfunction seen with tissue Doppler evidence of raised left atrial pressure, inferior vena cava is normal size with normal inspiratory collapse. CONCLUSION: 1. Mildly enlarged left atrium, normal left ventricular size, mild concentric left ventricular hypertrophy, visually estimated ejection fraction of 50% with no regional wall motion abnormality, grade 1 diastolic dysfunction seen with tissue Doppler evidence of raised left atrial pressure. Inferior vena cava is normal size with normal inspiratory collapse. 2. Moderate aortic, mild mitral and tricuspid regurgitation 3. No significant pericardial effusion noted.
--- NOTE | 2019-01-01 18:29 | Progress Note ---
[facility] Anesthesia Record Part I Intake, IV Amount: 1,200 Estimated blood loss (mL): 50 Urine output (mL): 500 Blood Products used (#): none Blood Pressure: 125/52 SaO2: 95 Pulse Rate: 88 Respiratory Rate: 20 Temperature: 99.1 F Patient is:: Drowsy, Nasal O2, Stable Stable to PACU at:: 18:27
--- NOTE | 2019-01-01 18:30 | Progress Note ---
[facility] Anesthesia Record Part II Discharge Time: 18:57 Destination: Medical Surgical Department PACU nurse assessment reviewed?: Yes Patient Condition:: Good Anesthesia Complications:: None Swallowing reflex intact?: Yes Cyanosis?: No
--- NOTE | 2019-01-01 21:59 | Consult Report ---
*Admission Date: 01/01/19 *Chief complaint: Left hip pain *History of present illness: 88-year-old female first seen and evaluated earlier this morning. She was admitted overnight after sustaining a fall last night at home. 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 Last night, she got up to walk to the bedroom, using her walker as usual, when she felt very dizzy/lightheaded and passed out. She fell, striking her chin on a dresser on the way down; she landed on her left side and was unable to ambulate. Mobilization was attempted in the ER after initial x-rays appeared negative, but she was unable to place weight on this leg. Subsequent CT scan revealed a nondisplaced fracture of the intertrochanteric region of the proximal femur. She has a history of left femoral neck fracture that was treated with cannulated screw placement, and the current fracture occurs around the screws. She also has a indwelling pacemaker and takes both aspirin and Plavix at baseline. She was given a loading dose of Plavix yesterday after her procedure. She has been seen by both medicine and cardiology and deemed medically stable/cleared for surgery. Review of Systems - Review of Systems Review of systems:: pertinent systems reviewed and negative unless documented below - *Neurologic Denies seizure-like activity [facility] History Medical History: Reports:: Atrial Fibrillation, Congestive Heart Failure, Hypertension, Internal Pacemaker, Seizures Denies:: Cancer, Diabetes Mellitus Type 1, Diabetes Mellitus Type 2, MRSA *Have you ever received a pneumonia vaccine?: Yes *Have you received a flu vaccine this season?: Yes Other Medical History: Reports: Arthritis, Hypothyroidism. Denies: Blood Transfusion Reaction Laterality Cases: Left: Arthroscopy Knee, Right: Total Hip Replacement Other Surgeries: Yes: Cardiac Catheterization (1995), Cholecystectomy, Hernia Re pair (Oct 1993), Hysterectomy-Total (December 1991), Pacemaker, Tubal Ligation (Oct 1962), Other Amputation: No Fractures: No - *Social History Educational Level: Completed High School Smoking Status: Never smoker # Packs/Day (cigarettes): 0 #Yrs smoked (if former smoker): 0 Alcohol Intake: never Alcohol Intake Frequency:: other Substance Use Type: denies use *Occupational Status:: retired Housing: house Household Members: spouse *Travel in the last 8 weeks: None - Psychiatric History Expresses thoughts of harming self/others: None Suicide Plan Description: No Plan Family Hx:: Hypertension Meds Home Medications Medication Instructions Recorded Confirmed Type aspirin 81 mg tablet,delayed 81 mg PO DAILY tab 01/14/18 01/01/19 History release cholecalciferol (vitamin D3) 1,000 1,000 unit PO DAILY cap 01/14/18 01/01/19 History unit capsule ergocalciferol (vitamin D2) 2,500 2,500 unit PO DAILY cap 01/14/18 01/01/19 History unit capsule hydrochlorothiazide 25 mg tablet 25 mg PO DAILY 30 Days #30 tab 07/22/18 01/01/19 History levothyroxine 100 mcg tablet 100 mcg PO DAILY 30 Days #30 tab 07/22/18 01/01/19 History ascorbic acid (vitamin C) 500 mg 500 mg PO DAILY cap 12/24/18 01/01/19 History capsule Carvedilol [Carvedilol 12.5mg Tab] 12.5 mg PO BID 12/30/18 01/01/19 History Atorvastatin Calcium [Atorvastatin 20 mg PO HS 12/31/18 01/01/19 History 20mg Tab] Clopidogrel Bisulfate [Plavix 75mg 75 mg PO DAILY 12/31/18 01/01/19 History Tab] Acetaminophen 500 mg PO BID 01/01/19 01/01/19 History Potassium Chloride [Klor-Con 10mEq 10 meq PO BID 01/01/19 01/01/19 History tab] Allergies Allergy/AdvReac Type Severity Reaction Status Date / Time bisoprolol Allergy Severe UNKNOWN Verified 01/01/19 01:19 clonidine Allergy Severe ANGIOEDEMA Verified 01/01/19 01:19 metronidazole Allergy Severe SEIZURES Verified 01/01/19 01:19 desloratadine [From Clarinex] Allergy Intermediate "PASSED Verified 01/01/19 01:19 OUT" doxazosin Allergy Intermediate I-RASH Verified 01/01/19 01:19 rofecoxib [From Vioxx] Allergy Intermediate LIP Verified 01/01/19 01:19 SWELLING amoxicillin Allergy Unknown UNKNOWN Verified 01/01/19 01:19 ciprofloxacin [From Cipro] Allergy Unknown UNKNOWN Verified 01/01/19 01:19 clarithromycin [From Biaxin] Allergy Unknown UNKNOWN Verified 01/01/19 01:19 codeine Allergy Unknown UNKNOWN Verified 01/01/19 01:19 diltiazem [From Cardizem] Allergy Unknown UNKNOWN Verified 01/01/19 01:19 duloxetine [From Cymbalta] Allergy Unknown UNKNOWN Verified 01/01/19 01:19 erythromycin base Allergy Unknown UNKNOWN Verified 01/01/19 01:19 ethacrynic acid Allergy Unknown UNKNOWN Verified 01/01/19 01:19 [From Edecrin] felodipine [From Plendil] Allergy Unknown UNKNOWN Verified 01/01/19 01:19 gabapentin [GABAPENTIN] Allergy Unknown swelling Verified 01/01/19 01:19 hydralazine [From Apresoline] Allergy Unknown UNKNOWN Verified 01/01/19 01:19 levofloxacin [From LEVAQUIN] Allergy Unknown Headache Verified 01/01/19 01:19 lisinopril [From Zestoretic] Allergy Unknown UNKNOWN Verified 01/01/19 01:19 nabumetone Allergy Unknown UNKNOWN Verified 01/01/19 01:19 nitrofurantoin Allergy Unknown UNKNOWN Verified 01/01/19 01:19 [From Macrodantin] omeprazole [From Prilosec] Allergy Unknown UNKNOWN Verified 01/01/19 01:19 pentazocine [From Talwin] Allergy Unknown UNKNOWN Verified 01/01/19 01:19 Sulfa (Sulfonamide Allergy Unknown UNKNOWN Verified 01/01/19 01:19 Antibiotics) telmisartan [From Micardis] Allergy Unknown UNKNOWN Verified 01/01/19 01:19 tetracycline Allergy Unknown UNKNOWN Verified 01/01/19 01:19 tolmetin [From Tolectin] Allergy Unknown UNKNOWN Verified 01/01/19 01:19 tramadol Allergy Unknown UNKNOWN Verified 01/01/19 01:19 ertapenem [From Invanz] AdvReac Severe seizures Verified 01/01/19 01:19 hydrocodone AdvReac Mild NA-NAUSEA/V Verified 01/01/19 01:19 OMITING nifedipine AdvReac Mild SWELLING Verified 01/01/19 01:19 Exam Vital signs and Labs for Last 24 Hours: Temp Pulse Resp BP Pulse Ox 97.4 F L 74 18 162/64 H 96 01/01/19 19:00 01/01/19 19:00 01/01/19 19:00 01/01/19 19:00 01/01/19 19:00 Laboratory Results - last 24 hr 01/01/19 01:15: WBC 10.9 H D, RBC 3.72 L, Hgb 11.8 L, Hct 36.4 L, MCV 97.8, MCH 31.7 H, MCHC 32.4, RDW 13.1, Plt Count 192, MPV 9.0, Neut % (Auto) 74.3, Lymph % (Auto) 18.1, [place] % (Auto) 5.5, Eos % (Auto) 1.4, Baso % (Auto) 0.7, Neut # (Auto) 8.1 H, Lymph # (Auto) 2.0, [place] # (Auto) 0.6, Eos # (Auto) 0.2, Baso # (Auto) 0.1 01/01/19 01:15: Sodium 139, Potassium 3.9, Chloride 102, Carbon Dioxide 29, Anion Gap 11.9, BUN 25 H, Creatinine 1.32 H, Estimated Creat Clear 28, Estimated GFR 38 L, Est GFR ( Amer) 46 L, Glucose 143 H D, Calcium 8.8, Total Bilirubin 0.5, AST 16, ALT 16, Alkaline Phosphatase 71, Troponin I 0.09 H, Total Protein 7.3, Albumin 3.2 L, Globulin 4.1 H, Albumin/Globulin Ratio 0.8 L 01/01/19 03:51: Urine Color Yellow, Urine Appearance Clear, Urine pH 7.0, Ur Specific [place] 1.010, Urine Protein Negative, Urine Glucose (UA) Trace, Urine Ketones Negative, Urine Blood Trace-i, Urine Nitrate Negative, Urine Bilirubin Negative, Urine Urobilinogen 0.2, Ur Leukocyte Esterase Negative, Urine WBC Occasional, Urine Bacteria Trace I & O for Last 24 hours: Intake & Output 12/30/18 12/31/18 01/01/19 01/02/19 11:59 11:59 11:59 11:59 Intake Total 0 / 0 1300 / 1300 Output Total 50 / 50 Balance 0 / 0 1250 / 1250 Weight 136 lb 2 oz - *Routine Extremities Exam Comments: patient AAOx3, NAD L hip with no external sign of trauma: no ecchymosis or abrasions/wounds LLE normal alignment; no shortening or excessive IR/ER moderate tenderness over the lateral aspect of the L hip prior surgical scar lateral L hip well-healed mild pain with logroll L hip +DF/PF/EHL LLE SILT distally LLE in all distributions palpable pedal pulses LLE, foot warm/well-perfused L calf soft, non-tender Results - Labs Result Diagrams: 01/01/19 01:15 01/01/19 01:15 Labs: Abnormal lab results 01/01/19 01/01/19 Range/Units 01:15 01:15 WBC 10.9 H D (4.8-10.8) K/mm3 RBC 3.72 L (4.20-5.40) M/mm3 Hgb 11.8 L (12.2-16.2) g/dL Hct 36.4 L (37.0-47.0) % MCH 31.7 H (27.0-31.2) pg Neut # (Auto) 8.1 H (1.8-7.8) K/mm3 BUN 25 H (7-18) mg/dL Creatinine 1.32 H (0.55-1.02) mg/dL Estimated GFR 38 L (>60) ml/min Est GFR ( Amer) 46 L (>60) ML/MIN Glucose 143 H D (74-106) mg/dL Troponin I 0.09 H (0.00-0.06) ng/ml Albumin 3.2 L (3.4-5.0) gm/dL Globulin 4.1 H (1.3-3.2) gm/dl Albumin/Globulin Ratio 0.8 L (1.1-1.8) H & H 01/01/19 Range/Units 01:15 Hgb 11.8 L (12.2-16.2) g/dL Hct 36.4 L (37.0-47.0) % All other labs normal. - Diagnostic results Hip x-ray: report reviewed, image reviewed (3 cannulated screws L hip, prior healed femoral neck fracture; no obvious new injury) Hip CT: report reviewed, image reviewed (non-displaced fracture of greater trochanter, with apparent fracture line extending through intertrochanteric region exiting around lesser trochanter ) Assessment and Plan (1) Fall Current visit: Yes Status: Acute Qualifiers: Encounter type: initial encounter Qualified Code(s): W19.XXXA - Unspecified fall, initial encounter Category: Medical Code(s): W19.XXXA - Unspecified fall, initial encounter (2) Hip fracture Current visit: Yes Status: Acute Qualifiers: Encounter type: initial encounter Fracture type: closed Laterality: left Qualified Code(s): S72.002A - Fracture of unspecified part of neck of left f emur, initial encounter for closed fracture Category: Medical Code(s): S72.009A - Fracture of unspecified part of neck of unspecified femur, initial encounter for closed fracture - Assessment and plan all Dx Assessment and Plan for all problems:: 88-year-old female with nondisplaced fracture left proximal femur, intertrochanteric region; this occurs in the setting of prior femoral neck fracture well-healed, treated with 3 cannulated screws placed in 2007 I discussed treatment options with the patient including nonoperative treatment consisting of protected weightbearing while healing occurs, versus surgical treatment. After discussion with her family they have elected to proceed with surgical treatment and I discussed with her the need for hardware removal followed by stabilization with an intramedullary nail. Given the bone void that would be left behind by cannulated screws in the femoral head and neck, I recommended cement augmentation prior to intramedullary nail placement. I dis cussed the risks of surgery including bleeding, infection, fracture displacement and need for more extensive surgery such as ORIF, possibility of persistent pain and/or refracture in the future, and the risks of anesthesia. The patient vocalized understanding and provided informed consent. Surgery is scheduled for this afternoon.
--- NOTE | 2019-01-01 22:10 | Operative Note ---
Date of procedure: 01/01/19 Pre-op Diagnosis:: 1) non-displaced fracture LEFT proximal femur, intertrochanteric region 2) presence of indwelling hardware; s/p prior femoral neck fracture treated with cannulated screw placement in 2007 Post-op Diagnosis:: 1) non-displaced fracture LEFT proximal femur, intertrochanteric region 2) presence of indwelling hardware; s/p prior femoral neck fracture treated with cannulated screw placement in 2007 Procedure performed:: 1) removal of hardware LEFT proximal femur 2) cement augmentation LEFT proximal femur 3) intramedullary nail LEFT femur Surgeon:: Julianne Fish MD Fry Cook(s):: Min Olivo MD MUD JACK OPERATOR:: Lalit Pena Anesthesia: GETA Estimated blood loss (mL): 200 Clinical Note:: The patient is an 88-year-old female who had bilateral renal artery stents placed yesterday; that night she had what is believed to have been a hypotensive episode and passed out at home. She fell onto her left hip and sustained a nondisplaced fracture of the left proximal femur. She has a remote history of femoral neck fracture on the side which was treated with 3 cannulated screws. This fracture healed well, and as it healed collapsed into slight valgus with femoral neck shortening. The fracture line started at the greater trochanter, travel through the intertrochanteric region and exited around the lesser trochanter. It was felt that the existing screws did not provide enough support to allow weightbearing and hardware removal with stabilization using an intramedullary nail was recommended. Given the void of the left by the screws I was concerned there would not be enough good bone remaining in the femoral head for lag screw purchase so the decision was made to augment this region with bone cement. After the cement set up we could drill through this and placed an intramedullary nail. This procedure was discussed with the patient and her family at length as well as all alternative options including nonoperative treatment. After discussion of the family they elected to proceed with surgery. I discussed the risks of surgery including bleeding, infection, fracture displacement/worsening and need for a larger incision or more extensive procedure including ORIF, the possibility of persistent pain and disability postoperatively, and the risk of anesthesia. The patient vocalized understanding and provided informed consent. Operative findings:: removed: Margaret 6.5mm cannulated screws x3 injected: HydroSet tricalcium phosphate cement implanted: [place] Gamma 3 femoral IMN system = 11 x 180mm (130deg) IMN + 10.5 x 85mm lag screw + 5 x 35mm distal interlocking screw Operative note:: The patient was identified in preoperative holding and the left hip signed by myself. She was taken to the OR and 1 g of Ancef was infused intravenously. General anesthesia was then induced and the patient was transferred to a fracture table. The lower extremities were secured into the fracture table and the left hip prepped and draped in the usual sterile fashion for hip fracture surgery. Timeout was performed, identifying the correct patient, correct procedure, and correct site. The procedure was begun by using fluoroscopy to localize her previously placed cannulated screws. Incision was made over her prior incision directly over the cannulated screws. Soft tissue was dissected sharply onto the screw heads and a [employer] [place] screw removal set was used to attempt screw removal. Her previous operative note was reviewed and there was no mention made of the diameter of screw use or the particular company used, so it was unknown what screwdriver would work with these screws. Nothing in this set work, so the Margaret set was pulled and the 6.5 mm [place] screwdriver fit well so all 3 screws were removed intact. 30 cc of HydroSet was then injected into each screw tract and into the femoral head. Fluoroscopy was used to visualize cement placement and after all 30 cc were injected into all 3 screw tracts, the cement was allowed to set up/harden. After it was appropriately hardened, it was deemed drillable so we proceeded with the intramedullary nail portion of the case. Incision was made longitudinally around 3 cm proximal to the tip of the greater trochanter on the lateral aspect of the left hip. Guidewire was placed over the tip of the greater trochanter and under power was placed into the proximal femur. Adequate guidepin placement was confirmed on both AP and latera l views. Entry reamer was then used to open up the proximal femoral canal. The decision was made to use a short gamma nail rather than a longer nail. An 11 mm diameter by 180 mm length Margaret gamma 3 intramedullary femoral nail was then placed; the neck shaft angle was 130 degrees on this implant. Once the nail was inserted into the bone and driven distally with a mallet to the desired level, a guidepin was placed from lateral to medial into the femoral head in a centercenter position. It was placed within the center of the femoral neck, cheating slightly inferiorly and into the center of the femoral head. Over this guidewire a 85 mm long, 10.5 mm diameter lag screw was placed, with an approximated tip apex distance of 11. The nail was then secured distally with a 5 x 35 mm distal interlocking screw in the femoral shaft. This was felt to be a stable, will place an implant that would stabilize the nondisplaced fracture prevent further fracture displacement/instability. The patient will be allowed to weight-bear as tolerated starting tomorrow. This concluded the procedure so all wounds were irrigated with saline and closed in layered fashion using 0 Vicryl and 2-0 Vicryl in the deeper layers and dennis on the skin. Sterile dressings were applied and the patient awoken from anesthesia. She was transferred back to her bed and taken to PACU in good condition. There were no complications during this case. Condition: stable Disposition: PACU Specimens:: Margaret 6.5mm cannulated screws x3 Complications:: none
[2019-01-02 06:36] LABS: Basophils % 0.1 % (0.1-2.0); Eosinophils % 0.1 % (0.1-12.0); Hematocrit 29.3 % (37.0-47.0); Hemoglobin 9.6 g/dL (12.2-16.2); Lymphocytes % 11.8 % (10-50); Mean Corpuscular HGB Conc 32.8 g/dL (31.8-35.4); Mean Corpuscular Hemoglobin 32.4 pg (27.0-31.2); Mean Corpuscular Volume 98.9 fl (81-99); Mean Platelet Volume 9.4 fl (7.4-10.4); Monocytes # 0.4 K/mm3 (0.1-1.0); Monocytes % 4.1 % (1.7-9.3); Neutrophils # 7.1 K/mm3 (1.8-7.8); Neutrophils % 83.9 % (37.0-80.0); Platelet Count 138 K/mm3 (142-424); Red Blood Count 2.96 M/mm3 (4.20-5.40); Red Cell Distribution Width 13.2 % (11.5-17.5); White Blood Count 8.5 K/mm3 (4.8-10.8)
[2019-01-02 06:44] LABS: Anion Gap 8.5 mEq/L (5-15); Calcium 8.6 mg/dL (8.5-10.1); Potassium 4.5 mmoL/L (3.5-5.1)
--- NOTE | 2019-01-02 08:43 | Progress Note ---
Addendum entered and electronically signed by GORDON Rodriguez 01/02/19 10:54: Pt with decreased consciousness episode during attempt of getting out of bed with PT. See Dr. Fish's note. Pt recovered quickly with sitting in chair. Suspect this is due to hypotension. Recently had renal artery stenting and surgery with continued BP meds. Will stop HCTZ and reduce coreg to 3.125 mg BID until pt is ambulating more. She may require reinstitution of diuretic therapy due to her mitral insufficiency but would be cautious due to her aortic regurgitation. Pt is being considered for swing bed placement. Original Note: Subjective Date: 01/02/19 Time: 08:43 Principal diagnosis: Hip Fx Interval history: 88-year-old white female in bed in no acute distress. Denies any chest pain, pressure or tightness. Patient did have hip surgery yesterday without complications. Patient and Dr. Alfred are considering swing bed placement for rehab. Exam Vital signs and Labs for Last 24 Hours: Temp Pulse Resp BP Pulse Ox 97.2 F L 71 18 108/53 L 100 01/02/19 04:00 01/02/19 04:00 01/02/19 04:00 01/02/19 04:00 01/02/19 04:00 Laboratory Results - last 24 hr 01/02/19 06:00: WBC 8.5, RBC 2.96 L, Hgb 9.6 L, Hct 29.3 L, MCV 98.9, MCH 32.4 H , MCHC 32.8, RDW 13.2, Plt Count 138 L D, MPV 9.4, Neut % (Auto) 83.9 H, Lymph % (Auto) 11.8, [place] % (Auto) 4.1, Eos % (Auto) 0.1, Baso % (Auto) 0.1, Neut # ( Auto) 7.1, Lymph # (Auto) 1.0, [place] # (Auto) 0.4, Eos # (Auto) 0.0, Baso # (Auto) 0.0 01/02/19 06:00: Sodium 138, Potassium 4.5, Chloride 105, Carbon Dioxide 29, Anion Gap 8.5, BUN 23 H, Creatinine 1.14 H, Estimated Creat Clear 33, Estimated GFR 45 L, Est GFR ( Amer) 54 L, Glucose 139 H, Calcium 8.6 I & O for Last 24 hours: Intake & Output 12/30/18 12/31/18 01/01/19 01/02/19 11:59 11:59 11:59 11:59 Intake Total 0 / 0 1632 / 1632 Output Total 325 / 325 Balance 0 / 0 1307 / 1307 Weight 136 lb 2 oz - *Routine Neck Exam Present: supple. Absent: JVD, carotid bruit - *Routine Respiratory Exam Present: CTA bilaterally. Absent: accessory muscle use, rales, rhonchi, wheezes - *Routine Cardiovascular Exam Present: RRR. Absent: murmur, gallop, rubs - *Routine Extremities Exam Absent: edema, calf tenderness Progress Note: A&P (1) Fall Status: Acute Current Visit: Yes (2) Hip fracture Status: Acute Current Visit: Yes (3) History of cardiac pacemaker in situ Status: Acute Current Visit: Yes (4) CKD (chronic kidney disease) Status: Chronic Current Visit: Yes (5) Essential (primary) hypertension Status: Chronic Current Visit: Yes (6) Mitral valve regurgitation Status: Chronic Current Visit: No Assessment and Plan for All Diagnoses:: 1. Cardiac status stable. 2. With recent renal artery stenting would recommend restarting Plavix 75 mg daily when okay with Dr. Fish.
--- NOTE | 2019-01-02 09:50 | Progress Note ---
Subjective Date: 01/02/19 Time: 09:00 Principal diagnosis: Hip Fx Interval history: The patient is doing well this morning, c/o some L hip soreness but pain is tolerable. No dizziness/lightheadedness in bed, no c/o chest pain or SOB. Has not been out of bed since surgery last night, PT to start this morning. PN: Obj Ex Vital signs: Temp Pulse Resp BP Pulse Ox 98.5 F 71 18 104/47 L 100 01/02/19 08:00 01/02/19 08:00 01/02/19 08:00 01/02/19 08:00 01/02/19 08:00 - Routine Extremities Exam Comments: AAOx3, NAD L hip dressing c/d/i, no drainage/strikethrough +DF/PF/EHL LLE SILT distally LLE in all distributions L calf soft, compressible, non-tender palpable pedal pulses LLE, foot warm/well-perfused mild periwound tenderness L hip, no ecchymosis or erythema martinez cath remains in place, plan to remove this morning - Urinary Catheter Management Martinez Cath placed during this visit: no Progress Note: A&P (1) Fall Status: Acute Current Visit: Yes (2) Hip fracture Status: Acute Current Visit: Yes (3) History of cardiac pacemaker in situ Status: Acute Current Visit: Yes (4) CKD (chronic kidney disease) Status: Chronic Current Visit: Yes (5) Essential (primary) hypertension Status: Chronic Current Visit: Yes (6) Mitral valve regurgitation Status: Chronic Current Visit: No Assessment and Plan for All Diagnoses:: 88yo F POD 1 s/p removal of hardware L hip w/cement augmentation --> IMN L femur (short gamma nail) -- WBAT LLE, PT ordered to start this morning --> PT in room when I arrived, I witnessed them mobilize her from bed with gait belt/walker. After she stood upright, she reported dizziness. She was placed in bedside chair and appeared to pass out for a moment; she was breathing with a good pulse, but fairly unresponsive for a moment, could not focus or make eye contact, became cold and clammy. After a moment her eyes focused and she became AAOx3, PERRLA bilaterally, vitals stable (SBP 130's). Suspect hypotensive episode. Cardiology assessed the patient and reviewed her medications; coreg and HCTZ will be held for now. -- maintain surgical dressing until at least POD 3 -- ok from ortho standpoint to restart plavix; DVT prophy to be added as well with lovenox per Dr. Alfred -- continue SCDs, encourage IS -- d/c juan this morning -- dispo planning: anticipate swing bed vs SNF
--- NOTE | 2019-01-02 13:50 | Progress Note ---
Internal Medicine - PN: Subj *Date: 01/02/19 *Time: 08:20 Interval history: Ms. Rubio presented yesterday after a fall and sustaining hip fracture on the left side. She went for surgical fixation last night with removal of old intramedullary screws and placement of a nail. Tolerated the procedure well and is sitting up in bed this morning alert and oriented. Currently complains of some left hip pain. Denies chest pain, syncope, bleeding, nausea or vomiting. Of note, when seen this morning with orthopedics and PT, patient had an episode of dizziness and suspected hypotension with mild confusion. Suspect related to her renal artery stents and drastic blood pressure change. Episodes suspicious for similarity to episode that likely caused her to fall at home causing her fracture. Return to normal after sitting back down and resting for several minutes Exam Vital signs and Labs for Last 24 Hours: Temp Pulse Resp BP Pulse Ox 97.9 F 72 17 113/90 98 01/02/19 12:00 01/02/19 12:00 01/02/19 12:00 01/02/19 12:00 01/02/19 12:00 Laboratory Results - last 24 hr 01/02/19 06:00: WBC 8.5, RBC 2.96 L, Hgb 9.6 L, Hct 29.3 L, MCV 98.9, MCH 32.4 H , MCHC 32.8, RDW 13.2, Plt Count 138 L D, MPV 9.4, Neut % (Auto) 83.9 H, Lymph % (Auto) 11.8, [place] % (Auto) 4.1, Eos % (Auto) 0.1, Baso % (Auto) 0.1, Neut # (Auto) 7.1, Lymph # (Auto) 1.0, [place] # (Auto) 0.4, Eos # (Auto) 0.0, Baso # (Auto) 0.0 01/02/19 06:00: Sodium 138, Potassium 4.5, Chloride 105, Carbon Dioxide 29, Anion Gap 8.5, BUN 23 H, Creatinine 1.14 H, Estimated Creat Clear 33, Estimated GFR 45 L, Est GFR ( Amer) 54 L, Glucose 139 H, Calcium 8.6 I & O for Last 24 hours: Intake & Output 12/30/18 12/31/18 01/01/19 01/02/19 23:59 23:59 23:59 23:59 Intake Total 1300 / 1300 812 / 812 Output Total 50 / 50 375 / 375 Balance 1250 / 1250 437 / 437 Weight 61.745 kg Narrative: Patient alert and oriented x3 - *Routine Neck Exam Present: supple. Absent: JVD, carotid bruit - *Routine Respiratory Exam Present: CTA bilaterally. Absent: accessory muscle use, rales, rhonchi, wheezes - *Routine Cardiovascular Exam Present: RRR. Absent: murmur, gallop, rubs - *Routine Extremities Exam Absent: edema, calf tenderness Presence of left-sided hip pain to palpation, surgical site clean dry and intact Assessment and Plan (1) Fall Current visit: Yes Status: Acute Qualifiers: Encounter type: initial encounter Qualified Code(s): W19.XXXA - Unspecified fall, initial encounter Category: Medical Code(s): W19.XXXA - Unspecified fall, initial encounter (2) Hip fracture Current visit: Yes Status: Acute Qualifiers: Encounter type: initial encounter Fracture type: closed Laterality: left Qualified Code(s): S72.002A - Fracture of unspecified part of neck of left femur, initial encounter for closed fracture Category: Medical Code(s): S72.009A - Fracture of unspecified part of neck of unspecified femur, initial encounter for closed fracture (3) History of cardiac pacemaker in situ Current visit: Yes Status: Acute Category: Medical Code(s): Z95.0 - Presence of cardiac pacemaker (4) CKD (chronic kidney disease) Current visit: Yes Status: Chronic Qualifiers: Chronic kidney disease stage: unspecified stage Qualified Code(s): N18.9 - Chronic kidney disease, unspecified Category: Medical Code(s): N18.9 - Chronic kidney disease, unspecified (5) Essential (primary) hypertension Current visit: Yes Status: Chronic Category: Medical Code(s): I10 - Essential (primary) hypertension (6) Mitral valve regurgitation Current visit: No Status: Chronic Qualifiers: Cardiac valve disease etiology: etiology unspecified Qualified Code(s): I34.0 - Nonrheumatic mitral (valve) insufficiency Category: Medical Code(s): I34.0 - Nonrheumatic mitral (valve) insufficiency - Assessment and plan all Dx Assessment and Plan for all problems:: Patient had repeat episode this morning of suspected hypotension and mild confusion and dizziness/presyncope. Plan for physical therapy and occupational therapy to assess, suspect patient would benefit from either transfer to swing or SNF in the coming days. Patient is otherwise stable. Cardiology continue to follow along, appreciate recommendations. Orthopedics continuing to follow along, appreciate recommendations. -Plan for initiation of Lovenox 40 mg once a day for DVT prophylaxis. Continue this for 2 weeks with transition to high-dose aspirin for 4 additional weeks. -Continuing Plavix due to renal artery stents -Initiate omeprazole to decrease risk for GI bleed given patient is on triple therapy -Continues to require inpatient management
--- NOTE | 2019-01-03 08:43 | Progress Note ---
Internal Medicine - PN: Subj *Date: 01/03/19 *Time: 08:40 Interval history: Patient is done well overnight except for a rash after intravenous hydromorphone which was promptly stopped and the rash resolved-also yesterday's event of slight blood pressure reduction while standing was also noted. Cardiology consultation and orthopedic notes reviewed. Patient is lying in bed comfortably, alert, oriented x3. Very pleasant. She has a son who has traveled into see her from [place] who is somewhat disgruntled about her medical care in general, including cardiology/previous medication changes, and is adamant that "she is not going to a long term-that is why I am here." He maintains that he is retired and will be living at home with her and her to help her transition to home. After several minutes of this he then asks about a swing bed placement that was discussed yesterday. Exam Vital signs and Labs for Last 24 Hours: Temp Pulse Resp BP Pulse Ox 97.8 F 70 18 117/46 L 93 L 01/03/19 04:00 01/03/19 04:00 01/03/19 04:00 01/03/19 04:00 01/03/19 04:00 I & O for Last 24 hours: Intake & Output 12/31/18 01/01/19 01/02/19 01/03/19 11:59 11:59 11:59 11:59 Intake Total 0 / 0 2112 / 2112 960 / 960 Output Total 425 / 425 700 / 700 Balance 0 / 0 1687 / 1687 260 / 260 Weight 136 lb 2 oz 136 lb 1.991 oz Narrative: Patient is pleasant. Alert. No rash visible today. No JVD. Anterior lung gloria are clear. Heart rate regular with previously noted murmur. Abdomen soft and nontender. Dressing on left hip is clean and dry. Distal extremities are warm and well-perfused. Able to wiggle her toes well. She has no pain if she is not moving her hip. Assessment and Plan (1) Fall Current visit: Yes Status: Acute Qualifiers: Encounter type: initial encounter Qualified Code(s): W19.XXXA - Unspecified fall, initial encounter Category: Medical Code(s): W19.XXXA - Unspecified fall, initial encounter (2) Hip fracture Current visit: Yes Status: Acute Qualifiers: Encounter type: initial encounter Fracture type: closed Laterality: left Qualified Code(s): S72.002A - Fracture of unspecified part of neck of left femur, initial encounter for closed fracture Category: Medical Code(s): S72.009A - Fracture of unspecified part of neck of unspecified femur, initial encounter for closed fracture Recovering well from surgery. Cardiology notes regarding hypotension reviewed. On reduced dose of beta-zeny and no diuretics. Watch this carefully. PT evaluation noted. In regards to rehabilitation placement, I informed her son that if she was able to go home with home health exclusively this would certainly be something we could arrange on Saturday. I informed him that a swing bed was essentially the same as a long term placement in regards to subacute rehab and that care management folks would be in touch with him regarding her suitability before either home health versus swing bed placement. She will be eligible for swing bed tomorrow if she still requires intensive rehab. Lovenox therapy started today. Continue Plavix for renal artery stents. Close observation of blood counts tomorrow. Given her allergy to hydromorphone and her blood pressure dropping will do low- dose Tylenol with codeine for pain before PT sessions given her allergy to hydrocodone. (3) History of cardiac pacemaker in situ Current visit: Yes Status: Acute Category: Medical Code(s): Z95.0 - Presence of cardiac pacemaker (4) CKD (chronic kidney disease) Current visit: Yes Status: Chronic Qualifiers: Chronic kidney disease stage: unspecified stage Qualified Code(s): N18.9 - Chronic kidney disease, unspecified Category: Medical Code(s): N18.9 - Chronic kidney disease, unspecified Stable disease. Check labs tomorrow. (5) Essential (primary) hypertension Current visit: Yes Status: Chronic Category: Medical Code(s): I10 - Essential (primary) hypertension On minimal dose carvedilol. Hold diuretics. Watch blood pressure carefully. (6) Mitral valve regurgitation Current visit: No Status: Chronic Qualifiers: Cardiac valve disease etiology: etiology unspecified Qualified Code(s): I34.0 - Nonrheumatic mitral (valve) insufficiency Category: Medical Code(s): I34.0 - Nonrheumatic mitral (valve) insufficiency
--- NOTE | 2019-01-03 10:23 | Progress Note ---
Subjective Date: 01/03/19 Time: 10:00 Principal diagnosis: Hip Fx Interval history: The patient is doing well this morning, no further dizziness since yesterday. Reports pain in left hip with activity, no pain at rest. Dilaudid caused a cutaneous reaction overnight, with flushing/redness but no shortness of breath or airway swelling. This was discontinued and Dr. Weiner is altering pain regimen. She denies chest pain or shortness of breath, has remained afebrile. PN: Obj Ex Vital signs: Temp Pulse Resp BP Pulse Ox 98.0 F 74 16 131/54 L 94 L 01/03/19 08:00 01/03/19 08:00 01/03/19 08:00 01/03/19 08:00 01/03/19 08:00 - Routine Extremities Exam Comments: AAOx3, NAD L hip surgical dressing removed, incisions c/d/i w/o drainage or periwound erythema/ecchymosis, minimal tenderness +DF/PF/EHL LLE SILT distally LLE in all distributions L calf soft, non-tender, negative homans palpable pedal pulses LLE, foot warm/well-perfused - Urinary Catheter Management Medrano Cath placed during this visit: no Progress Note: A&P (1) Fall Status: Acute Current Visit: Yes (2) Hip fracture Status: Acute Current Visit: Yes Assessment and Plan for All Diagnoses:: 88yo F POD 2 s/p L hip DOV w/cement augmentation --> IMN L femur (short gamma nail) -- WBAT LLE, continue PT/OT -- medical management per primary -- pain control: tylenol -- continue plavix per cardiology -- DVT prophy: lovenox -- continue SCDs, encourage IS -- anticipate swing bed admission vs d/c home with HHPT
[2019-01-04 06:13] LABS: Basophils % 0.4 % (0.1-2.0); Eosinophils # 0.6 K/mm3 (0.0-0.4); Hemoglobin 8.8 g/dL (12.2-16.2); Lymphocytes # 2.4 K/mm3 (0.7-4.5); Lymphocytes % 25.7 % (10-50); Mean Corpuscular HGB Conc 32.3 g/dL (31.8-35.4); Mean Corpuscular Volume 98.9 fl (81-99); Mean Platelet Volume 9.2 fl (7.4-10.4); Monocytes # 0.7 K/mm3 (0.1-1.0); Monocytes % 7.6 % (1.7-9.3); Neutrophils # 5.6 K/mm3 (1.8-7.8); Neutrophils % 60.1 % (37.0-80.0); Platelet Count 157 K/mm3 (142-424); Red Blood Count 2.76 M/mm3 (4.20-5.40); Red Cell Distribution Width 13.3 % (11.5-17.5); White Blood Count 9.3 K/mm3 (4.8-10.8)
[2019-01-04 06:24] LABS: Hematocrit 27.3 % (37.0-47.0)
[2019-01-04 06:30] LABS: Anion Gap 12.7 mEq/L (5-15); Calcium 8.1 mg/dL (8.5-10.1); Potassium 3.7 mmoL/L (3.5-5.1)
--- NOTE | 2019-01-04 08:38 | Progress Note ---
Internal Medicine - PN: Subj *Date: 01/04/19 *Time: 08:34 Interval history: Patient this morning is awake, alert. Has eaten 100% of her breakfast and drinking well. She has very minimal complaints of pain. Because of her variety of allergy/side effect profiles to medication and her son's refusal to try any oral pain medication because of her "allergies" she has been on plain Tylenol but this seems to have done fairly well for her. She tolerated physical therapy session yesterday and was in a chair for most of the day. She had one dizzy episode but her blood pressure has been normal. Exam Vital signs and Labs for Last 24 Hours: Temp Pulse Resp BP Pulse Ox 97.5 F L 78 16 174/70 H 95 01/04/19 04:00 01/04/19 04:00 01/04/19 04:00 01/04/19 04:00 01/04/19 04:00 Laboratory Results - last 24 hr 01/04/19 05:55: WBC 9.3, RBC 2.76 L, Hgb 8.8 L, Hct 27.3 L, MCV 98.9, MCH 32.0 H , MCHC 32.3, RDW 13.3, Plt Count 157, MPV 9.2, Neut % (Auto) 60.1, Lymph % (Auto) 25.7, [place] % (Auto) 7.6, Eos % (Auto) 6.0, Baso % (Auto) 0.4, Neut # (Auto) 5.6, Lymph # (Auto) 2.4, [place] # (Auto) 0.7, Eos # (Auto) 0.6 H, Baso # (Auto) 0.0 01/04/19 05:55: Sodium 138, Potassium 3.7, Chloride 104, Carbon Dioxide 25, Anion Gap 12.7, BUN 18, Creatinine 0.90 D, Estimated Creat Clear 40, Estimated GFR 59, Est GFR ( Amer) 71 D, Glucose 105, Calcium 8.1 L I & O for Last 24 hours: Intake & Output 01/01/19 01/02/19 01/03/19 01/04/19 11:59 11:59 11:59 12:59 Intake Total 0 / 0 2112 / 2112 1320 / 1320 3196 / 3196 Output Total 425 / 425 700 / 700 600 / 600 Balance 0 / 0 1687 / 1687 620 / 620 2596 / 2596 Weight 136 lb 2 oz 136 lb 1.991 oz 142 lb 5 oz Narrative: Alert, oriented. No JVD, oropharynx clear. Lungs have good air movement, minimal rhonchi in both bases but much clearer than previously. Heart rate regular with 2/6 murmur as previously noted. Abdomen soft. Extremities without edema or clubbing. Good distal perfusion. Assessment and Plan (1) Fall Current visit: Yes Status: Acute Qualifiers: Encounter type: initial encounter Qualified Code(s): W19.XXXA - Unspecified fall, initial encounter Category: Medical Code(s): W19.XXXA - Unspecified fall, initial encounter (2) Hip fracture Current visit: Yes Status: Acute Qualifiers: Encounter type: initial encounter Fracture type: closed Laterality: left Qualified Code(s): S72.002A - Fracture of unspecified part of neck of left femur, initial encounter for closed fracture Category: Medical Code(s): S72.009A - Fracture of unspecified part of neck of unspecified femur, initial encounter for closed fracture Physical therapy continues. Nurses continue to do a good job with mobility. Decision tomorrow on swing bed versus home health. Patient's son who has arrived from [place] continues to be the primary spokesperson for the patient when he is in the room. Quite frankly, he has been rude and threatening to the nursing staff and in interactions with the variety of physicians and consultants that attend his mother has been derogatory and aggressively trying to get medical staff to contradict each other. He has also spoken very poorly of each of the physicians competence to the nursing staff. Interestingly, when I spoke with him [id number] he expressed no concern about patient's management with medicine, other physicians management, only expressed some mild concern about physical therapy sessions. (3) CKD (chronic kidney disease) Current visit: Yes Status: Chronic Qualifiers: Chronic kidney disease stage: unspecified stage Qualified Code(s): N18.9 - Chronic kidney disease, unspecified Category: Medical Code(s): N18.9 - Chronic kidney disease, unspecified Status post renal stenting creatinine continues to improve, normalized this morning. (4) Essential (primary) hypertension Current visit: Yes Status: Chronic Category: Medical Code(s): I10 - Essential (primary) hypertension Doing well on very low-dose carvedilol. (5) Postoperative anemia Current visit: Yes Status: Acute Category: Medical Code(s): D64.9 - Anemia, unspecified Hemoglobin below 9 g this morning. Check again tomorrow. Consider 1 unit if patient is symptomatic or if hemoglobin below 8.
--- NOTE | 2019-01-04 10:54 | Progress Note ---
Subjective Date: 01/04/19 Time: 10:00 Principal diagnosis: Hip Fx Interval history: The patient herself is doing well, but there were some issues yesterday with her son being aggressive and verbally abusive towards staff. I received this report from three separate nurses as well as Dr. Weiner. He has been aggressive about having therapy see her more frequently and regarding her pain medication, though he won't allow anything other than morphine or tylenol. Today he is pleasant with me, but remains fairly demanding and complains about nursing/PT care. The patient reports pain in the left hip/thigh with ambulation but no pain at rest. She has not had any dizziness/lightheadedness over the past 24 hours, and BP has been stable, if perhaps a little high. PN: Obj Ex Vital signs: Temp Pulse Resp BP Pulse Ox 98.3 F 70 16 159/65 H 96 01/04/19 08:00 01/04/19 08:00 01/04/19 08:00 01/04/19 08:00 01/04/19 08:00 - Routine Extremities Exam Comments: AAOx3, NAD L hip dressing c/d/i w/o periwound erythema/ecchymosis, minimal tenderness +DF/PF/EHL LLE SILT distally LLE in all distributions L calf soft, non-tender, negative homans palpable pedal pulses LLE, foot warm/well-perfused - Urinary Catheter Management Medrano Cath placed during this visit: no Progress Note: A&P (1) Fall Status: Acute Current Visit: Yes (2) Hip fracture Status: Acute Current Visit: Yes (3) CKD (chronic kidney disease) Status: Chronic Current Visit: Yes (4) Essential (primary) hypertension Status: Chronic Current Visit: Yes (5) Postoperative anemia Status: Acute Current Visit: Yes Assessment and Plan for All Diagnoses:: 88yo F POD 3 s/p DOV L hip w/cement augmentation, IMN L femur -- WBAT LLE, continue PT/OT -- medical management per PCP -- tylenol/morphine working well for pain now, but I warned her son that she would need to be off IV pain medicine before d/c home -- witnessed/assisted patient transfer to bedside commode this morning, she is very much NOT ready for d/c home, would not be safe at this point. Strongly recommend SNF placement or swing bed; her son is adamant he will be there 24-7 to help her, but I do not think he is capable of providing 24 hour nursing care and assistance with activity by himself. I do not believe she is safe for d/c home yet.
[2019-01-05 06:44] LABS: Basophils % 0.4 % (0.1-2.0); Eosinophils # 0.4 K/mm3 (0.0-0.4); Eosinophils % 4.8 % (0.1-12.0); Hematocrit 26.5 % (37.0-47.0); Hemoglobin 8.7 g/dL (12.2-16.2); Lymphocytes % 25.6 % (10-50); Mean Corpuscular HGB Conc 32.7 g/dL (31.8-35.4); Mean Corpuscular Hemoglobin 32.2 pg (27.0-31.2); Mean Corpuscular Volume 98.4 fl (81-99); Mean Platelet Volume 8.9 fl (7.4-10.4); Monocytes # 0.6 K/mm3 (0.1-1.0); Monocytes % 7.9 % (1.7-9.3); Neutrophils # 4.9 K/mm3 (1.8-7.8); Neutrophils % 61.3 % (37.0-80.0); Platelet Count 168 K/mm3 (142-424); Red Cell Distribution Width 13.3 % (11.5-17.5); White Blood Count 7.9 K/mm3 (4.8-10.8)
[2019-01-05 06:54] LABS: Anion Gap 8.9 mEq/L (5-15); Calcium 8.4 mg/dL (8.5-10.1); Potassium 3.9 mmoL/L (3.5-5.1)
--- NOTE | 2019-01-05 08:43 | Progress Note ---
Subjective Date: 01/05/19 Time: 08:39 Principal diagnosis: Hip Fx Interval history: 88 yo WF in bed in NAD. Eldest son in room. Verbalizes frustration with decreased services over the weekend. He does feel his mom is improving, although slowly which he admits is likely due to her age. Pt denies any chest pains. She does admit to some discomfort in the hip from surgery. Minimal ambulation in the room. Exam Vital signs and Labs for Last 24 Hours: Temp Pulse Resp BP Pulse Ox 98.9 F 71 18 155/51 H 97 01/05/19 08:00 01/05/19 08:00 01/05/19 08:00 01/05/19 08:00 01/05/19 08:00 Laboratory Results - last 24 hr 01/05/19 05:42: WBC 7.9, RBC 2.70 L, Hgb 8.7 L, Hct 26.5 L, MCV 98.4, MCH 32.2 H , MCHC 32.7, RDW 13.3, Plt Count 168, MPV 8.9, Neut % (Auto) 61.3, Lymph % (Auto) 25.6, [place] % (Auto) 7.9, Eos % (Auto) 4.8, Baso % (Auto) 0.4, Neut # (Auto) 4.9, Lymph # (Auto) 2.0, [place] # (Auto) 0.6, Eos # (Auto) 0.4, Baso # (Auto) 0.0 01/05/19 05:42: Sodium 139, Potassium 3.9, Chloride 105, Carbon Dioxide 29, Anion Gap 8.9, BUN 14, Creatinine 0.92, Estimated Creat Clear 39, Estimated GFR 58 L, Est GFR ( Amer) 70, Glucose 102, Calcium 8.4 L I & O for Last 24 hours: Intake & Output 01/02/19 01/03/19 01/04/19 01/05/19 10:59 10:59 11:59 11:59 Intake Total 340 / 340 Output Total 575 / 575 Balance -235 / -235 Weight 141 lb 8 oz - *Routine Respiratory Exam Present: CTA bilaterally. Absent: accessory muscle use, rales, rhonchi, wheezes - *Routine Cardiovascular Exam Present: RRR. Absent: murmur, gallop, rubs - *Routine Extremities Exam Absent: edema, calf tenderness Progress Note: A&P (1) Fall Status: Acute Current Visit: Yes (2) Hip fracture Status: Acute Current Visit: Yes (3) CKD (chronic kidney disease) Status: Chronic Current Visit: Yes (4) Essential (primary) hypertension Status: Chronic Current Visit: Yes (5) Postoperative anemia Status: Acute Current Visit: Yes Assessment and Plan for All Diagnoses:: Continue current meds from a cardiac standpoint. BP is labile but b/w 120-160 mm Hg systolic and with pain from surgery and unsteadiness on feet, will not increase meds.
--- NOTE | 2019-01-05 08:47 | Swing Bed Reports ---
*Admission Date: 01/01/19 *Chief complaint: Fall with left hip fracture *History of present illness: 88-year-old female first seen and evaluated earlier this morning. She was admitted overnight after sustaining a fall last night at home. 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 Last night, she got up to walk to the bedroom, using her walker as usual, when she felt very dizzy/lightheaded and passed out. She fell, striking her chin on a dresser on the way down; she landed on her left side and was unable to ambulate. Mobilization was attempted in the ER after initial x-rays appeared negative, but she was unable to place weight on this leg. Subsequent CT scan revealed a nondisplaced fracture of the intertrochanteric region of the proximal femur. She has a history of left femoral neck fracture that was treated with cannulated screw placement, and the current fracture occurs around the screws. She also has a indwelling pacemaker and takes both aspirin and Plavix at baseline. She was given a loading dose of Plavix yesterday after her procedure. She has been seen by both medicine and cardiology and deemed medically stable/cleared for surgery. Hospital Course Hospital Course: Patient was admitted to hospital. Please see HPI above. After cardiac and medical clearance for surgery patient was subjected to repeat ORIF of the left hip which was uncomplicated. She underwent standard postoperative wound care and was also placed on Lovenox for DVT prophylaxis. Plavix was continued because of her recent renal stenting as well as aspirin for antiplatelet therapy. Her blood counts were carefully monitored and although it did lower expectedly postoperatively stabilized this morning. PT worked with her. She was noted to have a couple of episodes of dizziness, HCTZ was discontinued, low-dose beta-blockers were continued and her blood pressure remained stable even though she did have a couple of dizzy spells with positioning she had no actual orthostatic hypotensive changes. She improved in relationship to oral intake and physical therapy participation and she will be transferred into swing bed today for ongoing PT, medical observation and supportive care. Exam Vital signs and Labs for Last 24 Hours: Temp Pulse Resp BP Pulse Ox 98.9 F 71 18 155/51 H 97 01/05/19 08:00 01/05/19 08:00 01/05/19 08:00 01/05/19 08:00 01/05/19 08:00 Laboratory Results - last 24 hr 01/05/19 05:42: WBC 7.9, RBC 2.70 L, Hgb 8.7 L, Hct 26.5 L, MCV 98.4, MCH 32.2 H , MCHC 32.7, RDW 13.3, Plt Count 168, MPV 8.9, Neut % (Auto) 61.3, Lymph % (Auto) 25.6, [place] % (Auto) 7.9, Eos % (Auto) 4.8, Baso % (Auto) 0.4, Neut # (Auto) 4.9, Lymph # (Auto) 2.0, [place] # (Auto) 0.6, Eos # (Auto) 0.4, Baso # (Auto) 0.0 01/05/19 05:42: Sodium 139, Potassium 3.9, Chloride 105, Carbon Dioxide 29, Anion Gap 8.9, BUN 14, Creatinine 0.92, Estimated Creat Clear 39, Estimated GFR 58 L, Est GFR ( Amer) 70, Glucose 102, Calcium 8.4 L I & O for Last 24 hours: Intake & Output 01/02/19 01/03/19 01/04/19 01/05/19 10:59 10:59 11:59 11:59 Intake Total 340 / 340 Output Total 575 / 575 Balance -235 / -235 Weight 141 lb 8 oz Narrative: Patient is awake, alert, oriented x3, a little fuzzy about the date occasionally. No JVD, oropharynx clear. Heart rate regular with previously noted 2/6 murmur. Scattered rhonchi but good air movement in the bases. Improved over postoperative status. Dressing on the left hip is clean and dry. She is able to wiggle her toes well, no perfusion deficits. Pain with hip manipulation-please refer to orthopedic notes for detailed hip exam. Patient has no weakness in arms, is able to move feet symmetrically. Normal sensation. Results Labs on day of discharge: Labs from last 24 hours 01/05/19 01/05/19 05:42 05:42 WBC 7.9 RBC 2.70 L Hgb 8.7 L Hct 26.5 L MCV 98.4 MCH 32.2 H MCHC 32.7 RDW 13.3 Plt Count 168 MPV 8.9 Neut % (Auto) 61.3 Lymph % (Auto) 25.6 [place] % (Auto) 7.9 Eos % (Auto) 4.8 Baso % (Auto) 0.4 Neut # (Auto) 4.9 Lymph # (Auto) 2.0 [place] # (Auto) 0.6 Eos # (Auto) 0.4 Baso # (Auto) 0.0 Sodium 139 Potassium 3.9 Chloride 105 Carbon Dioxide 29 Anion Gap 8.9 BUN 14 Creatinine 0.92 Estimated Creat Clear 39 Estimated GFR 58 L Est GFR ( Amer) 70 Glucose 102 Calcium 8.4 L DS: Diagnosis - Discharge Diagnosis (1) Fall Status: Acute (2) Hip fracture Status: Acute (3) CKD (chronic kidney disease) Status: Chronic (4) Essential (primary) hypertension Status: Chronic (5) Postoperative anemia Status: Acute Discharge/Transfer ([facility]) - Plan of Care Resident has been informed of condition and prognosis?: Yes Mobility Status: ambulatory with assistance Goal of treatment:: Return to home Rehab Potential: Good Prognosis:: Good Mental Status: Oriented x 3 I concur with the most recent H&P: Yes Date of most recent H&P: 01/05/19 Certification: I have reviewed and agree with this resident's plan of care. I certify that post-hospital fpc facility services are required to be given on an inpatient basis because of the need for fpc care on a continuing basis for the condition(s) for which he/she is receiving inpatient hospital services prior to admission to [facility]. I also certify that the resident meets existing SNF level of care definition. - Discharge from Acute Disposition: [facility] Bed Condition: Good Current Home Med List: Home Medications Medication Instructions Recorded Confirmed Type Acetaminophen 500 mg PO BID 01/01/19 01/01/19 History Potassium Chloride [Klor-Con 10mEq 10 meq PO BID 01/01/19 01/01/19 History tab] Home Med List for [facility]: New Carvedilol [Coreg 3.125mg Tablet] 3.125 mg PO BID tablet Continue aspirin 81 mg tablet,delayed release 81 mg PO DAILY tab cholecalciferol (vitamin D3) 1,000 unit capsule 1,000 unit PO DAILY cap levothyroxine 100 mcg tablet 100 mcg PO DAILY 30 Days #30 tab ascorbic acid (vitamin C) 500 mg capsule 500 mg PO DAILY cap Clopidogrel Bisulfate [Plavix 75mg Tab] 75 mg PO DAILY Atorvastatin Calcium [Atorvastatin 20mg Tab] 20 mg PO HS Acetaminophen 500 mg PO BID Potassium Chloride [Klor-Con 10mEq tab] 10 meq PO BID Discontinued hydrochlorothiazide 25 mg tablet 25 mg PO DAILY 30 Days #30 tab Carvedilol [Carvedilol 12.5mg Tab] 12.5 mg PO BID No Action ergocalciferol (vitamin D2) 2,500 unit capsule 2,500 unit PO DAILY cap
== END 2019-01-05 11:32 | disposition swing bed (61) | DRG 481 ==
LOC: 2ND 00:58 → ER 00:58 → OBSVTOIN 04:49 → 2ND 04:50
PROVIDERS: ADMIT Emergency Medicine; ATTEND Internal Medicine Adolescent Medicine
CPT/HCPCS: 36415; 37236; 37237; 70450; 71010; 71045; 72125; 72192; 73502; 76000; 80048; 80053; 81001; 84484; 85025; 85347; 93005; 93306; 94761; 96374; 96375; 97163; 97166; 97530; 97535; 99152; 99284; C1713; C1725; C1769; C1776; C1876; C1894; J1644; J2405; J2720; Q9966

== ENCOUNTER 2019-01-05 11:33 | Inpatient (IN) ==
--- NOTE | 2019-01-05 14:14 | Pharmacy Consult Notes ---
[facility] Pharmacy VTE Monitoring - Patient Demographics Admission date: 01/05/19 Report Date: 01/05/19 Time: 14:13 Allergies/Adverse Reactions: Patient Allergies bisoprolol Allergy (Severe, Verified 01/01/19 01:19) UNKNOWN clonidine Allergy (Severe, Verified 01/01/19 01:19) ANGIOEDEMA metronidazole Allergy (Severe, Verified 01/01/19 01:19) SEIZURES desloratadine [From Clarinex] Allergy (Intermediate, Verified 01/01/19 01:19) "PASSED OUT" doxazosin Allergy (Intermediate, Verified 01/01/19 01:19) I-RASH hydromorphone Allergy (Intermediate, Verified 01/02/19 23:40) Redness of Skin rofecoxib [From Vioxx] Allergy (Intermediate, Verified 01/01/19:19) LIP SWELLING acetaminophen [From Percocet] Allergy (Unknown, Verified 01/02/19 00:00) Unknown allergy reaction amoxicillin Allergy (Unknown, Verified 01/01/19 01:19) UNKNOWN ciprofloxacin [From Cipro] Allergy (Unknown, Verified 01/01/19 01:19) UNKNOWN clarithromycin [From Biaxin] Allergy (Unknown, Verified 01/01/19 01:19) UNKNOWN codeine Allergy (Unknown, Verified 01/01/19 01:19) UNKNOWN diltiazem [From Cardizem] Allergy (Unknown, Verified 01/01/19:19) UNKNOWN duloxetine [From Cymbalta] Allergy (Unknown, Verified 01/01/19 01:19) UNKNOWN erythromycin base Allergy (Unknown, Verified 01/01/19 01:19) UNKNOWN ethacrynic acid [From Edecrin] Allergy (Unknown, Verified 01/01/19 01:19) UNKNOWN felodipine [From Plendil] Allergy (Unknown, Verified 01/01/19 01:19) UNKNOWN gabapentin [GABAPENTIN] Allergy (Unknown, Verified 01/01/19 01:19) swelling hydralazine [From Apresoline] Allergy (Unknown, Verified 01/01/19 01:19) UNKNOWN levofloxacin [From LEVAQUIN] Allergy (Unknown, Verified 01/01/19 01:19) Headache lisinopril [From Zestoretic] Allergy (Unknown, Verified 01/01/19 01:19) UNKNOWN nabumetone Allergy (Unknown, Verified 01/01/19:19) UNKNOWN nitrofurantoin [From Macrodantin] Allergy (Unknown, Verified 01/01/19 01:19) UNKNOWN omeprazole [From Prilosec] Allergy (Unknown, Verified 01/01/19:19) UNKNOWN oxycodone [From Percocet] Allergy (Unknown, Verified 01/02/19 00:00) Unknown allergy reaction pentazocine [From Talwin] Allergy (Unknown, Verified 01/01/19:19) UNKNOWN propoxyphene [From Darvocet-N] Allergy (Unknown, Verified 01/02/19 00:01) Unknown allergy reaction Sulfa (Sulfonamide Antibiotics) Allergy (Unknown, Verified 01/01/19:19) UNKNOWN telmisartan [From Micardis] Allergy (Unknown, Verified 01/01/19:19) UNKNOWN tetracycline Allergy (Unknown, Verified 01/01/19:19) UNKNOWN tolmetin [From Tolectin] Allergy (Unknown, Verified 01/01/19:19) UNKNOWN tramadol Allergy (Unknown, Verified 01/01/19:19) UNKNOWN ertapenem [From Invanz] Adverse Reaction (Severe, Verified 01/01/19:19) seizures hydrocodone Adverse Reaction (Mild, Verified 01/01/19:19) NA-NAUSEA/VOMITING nifedipine Adverse Reaction (Mild, Verified 01/01/19:19) SWELLING Height: 1.65 m Weight: 64.183 kg - VTE Risk Was VTE Risk Assessment Performed: Yes VTE Score: 4 VTE Risk Level: Low Risk Clinical Trial Participant: No - Prophylaxis VTE Prophylaxis Ordered?: Yes Types of VTE Prophylaxis: IPCS Knee High Pharmacologic Type: Enoxaparin
--- NOTE | 2019-01-05 16:46 | Progress Note ---
Subjective Date: 01/05/19 Time: 12:00 Principal diagnosis: L hip fx Interval history: The patient is doing well today, reports easier time with therapy today, but still requiring IV morphine for pain control. Also taking po tylenol. PN: Obj Ex - Constitutional no acute distress, average body habitus, cooperative - Routine Respiratory Exam Absent: accessory muscle use, respiratory distress, wheezes - Routine Extremities Exam Present: pulses intact, normal capillary refill, tenderness. Absent: calf tenderness, Richi's sign Comments: L hip dressing with small spot of drainage, appears dried/old; dennis intact, no active drainage, dressing changed +DF/PF/EHL LLE SILT distally LLE in all distributions L calf soft, non-tender, negative Homans palpable pedal pulses LLE, foot warm/well-perfused Progress Note: A&P (1) Hip fracture Status: Acute Current Visit: No Assessment and Plan for All Diagnoses:: 88yo F POD 4 s/p removal of hardware L hip with cement augmentation, intramedullary nail L femur (short gamma nail) -- continue PT/OT on swing bed admission; WBAT LLE -- pain control: continue tylenol, morphine PRN for breakthrough, but advised patient/family that she will have to be comfortable on PO only prior to d/c -- change hip dressing PRN -- DVT prophy per primary: lovenox
--- NOTE | 2019-01-06 12:36 | Progress Note ---
Subjective Date: 01/06/19 Time: 10:30 Principal diagnosis: L hip fx Interval history: The patient continues to improve daily, reporting more energy, less pain and increased activity with PT. She was able to sit on the edge of the bed by herself, and with PT assistance, has been up and walking into the hallway with a walker. PN: Obj Ex Vital signs: Temp Pulse Resp BP Pulse Ox 97.5 F L 79 18 194/62 H 96 01/06/19 08:00 01/06/19 08:00 01/06/19 08:00 01/06/19 08:00 01/06/19 11:24 - Routine Extremities Exam Comments: L hip dressing with moderate drainage, dark blood; removed, no active drainage, mild tenderness +DF/PF/EHL LLE SILT distally LLE in all distributions L calf soft, non-tender, negative Homans palpable pedal pulses LLE, foot warm/well-perfused Progress Note: A&P (1) Hip fracture Status: Acute Current Visit: No Assessment and Plan for All Diagnoses:: 88yo F POD 5 s/p DOV L hip w/cement aug + IMN femur -- continue rehab per swing bed protocol -- WBAT LLE -- medical management per PCP -- will continue to follow; may need HHPT after d/c
--- NOTE | 2019-01-07 08:25 | Progress Note ---
Internal Medicine - PN: Subj *Date: 01/07/19 *Time: 08:23 Interval history: Has done well in swing bed except for constipation... breathing is better. Pulling 1000ml on spirometer. Exam Vital signs and Labs for Last 24 Hours: Temp Pulse Resp BP Pulse Ox 98.3 F 70 17 145/63 H 97 01/07/19 08:00 01/07/19 08:00 01/07/19 08:00 01/07/19 08:00 01/07/19 08:00 I & O for Last 24 hours: Intake & Output 01/04/19 01/05/19 01/06/19 01/07/19 11:59 11:59 11:59 11:59 Intake Total 620 / 620 840 / 840 Output Total 450 / 450 Balance 170 / 170 840 / 840 Weight 141 lb 7.989 oz 138 lb 9 oz 142 lb 2 oz Narrative: Patient sitting up on the side of the bed. Breathing easily. No rhonchi noted in chest which is an improvement. Minimal bruising on the left lower back from her fall at home. No worsening. No edema or clubbing in her extremities. Pulse rate regular. Assessment and Plan (1) Hip fracture Current visit: No Status: Acute Qualifiers: Encounter type: initial encounter Fracture type: closed Laterality: left Qualified Code(s): S72.002A - Fracture of unspecified part of neck of left femur, initial encounter for closed fracture Category: Medical Code(s): S72.009A - Fracture of unspecified part of neck of unspecified femur, initial encounter for closed fracture - Assessment and plan all Dx Assessment and Plan for all problems:: Overall doing very nicely. Continue PT. Continue orthopedic follow-up. Labs in the next couple of days to monitor postoperative anemia.
--- NOTE | 2019-01-07 21:28 | Progress Note ---
Subjective Date: 01/07/19 Time: 12:00 Principal diagnosis: L hip fx Interval history: The patient was seen around noon today, eating lunch with her family and doing well. Walking is improving with PT, pain is decreasing. No fevers or chills reported, no chest pain or shortness of breath. She has been constipated but received an enema this morning that helped. PN: Obj Ex Vital signs: Temp Pulse Resp BP Pulse Ox 98.0 F 71 16 159/52 H 98 01/07/19 20:00 01/07/19 20:00 01/07/19 20:00 01/07/19 20:00 01/07/19 20:00 - Routine Extremities Exam Comments: AAOx3, NAD L hip dressing with mild serous drainage +DF/PF/EHL LLE SILT distally in LLE palpable pedal pulses LLE L calf soft, non-tender Progress Note: A&P (1) Hip fracture Status: Acute Current Visit: No Assessment and Plan for All Diagnoses:: 88yo F POD 6 s/p DOV L hip w/cement augmentation + IMN femur -- continue WBAT LLE, PT/OT -- medical management per primary -- will continue to follow
[2019-01-08 06:50] LABS: Basophils % 0.5 % (0.1-2.0); Eosinophils # 0.4 K/mm3 (0.0-0.4); Eosinophils % 5.3 % (0.1-12.0); Hematocrit 26.6 % (37.0-47.0); Hemoglobin 8.4 g/dL (12.2-16.2); Lymphocytes # 2.3 K/mm3 (0.7-4.5); Mean Corpuscular HGB Conc 31.5 g/dL (31.8-35.4); Mean Corpuscular Hemoglobin 31.8 pg (27.0-31.2); Mean Corpuscular Volume 100.8 fl (81-99); Mean Platelet Volume 8.9 fl (7.4-10.4); Monocytes # 0.6 K/mm3 (0.1-1.0); Monocytes % 8.1 % (1.7-9.3); Neutrophils # 4.1 K/mm3 (1.8-7.8); Neutrophils % 55.1 % (37.0-80.0); Platelet Count 280 K/mm3 (142-424); Red Blood Count 2.64 M/mm3 (4.20-5.40); Red Cell Distribution Width 14.2 % (11.5-17.5); White Blood Count 7.5 K/mm3 (4.8-10.8)
[2019-01-08 07:19] LABS: Anion Gap 13.2 mEq/L (5-15); Calcium 8.9 mg/dL (8.5-10.1); Potassium 4.2 mmoL/L (3.5-5.1)
--- NOTE | 2019-01-08 09:53 | Progress Note ---
Internal Medicine - PN: Subj *Date: 01/08/19 *Time: 08:40 Interval history: Patient is sitting up in chair. Pain is well controlled. She is utilizing IS as directed. She is able to ambulate to the bathroom with rolling walker. Overall, she feels well and is ready to go home Exam Vital signs and Labs for Last 24 Hours: Temp Pulse Resp BP Pulse Ox 97.7 F 70 16 162/66 H 99 01/08/19 08:00 01/08/19 08:00 01/08/19 08:00 01/08/19 08:00 01/08/19 08:00 Laboratory Results - last 24 hr 01/08/19 05:45: WBC 7.5, RBC 2.64 L, Hgb 8.4 L, Hct 26.6 L, MCV 100.8 H, MCH 31.8 H, MCHC 31.5 L, RDW 14.2, Plt Count 280 D, MPV 8.9, Neut % (Auto) 55.1, Lymph % (Auto) 31.0, [place] % (Auto) 8.1, Eos % (Auto) 5.3, Baso % (Auto) 0.5, Neut # (Auto) 4.1, Lymph # (Auto) 2.3, [place] # (Auto) 0.6, Eos # (Auto) 0.4, Baso # (Auto) 0.0 01/08/19 05:45: Sodium 142, Potassium 4.2, Chloride 106, Carbon Dioxide 27, Anion Gap 13.2, BUN 16, Creatinine 1.06 H, Estimated Creat Clear 37, Estimated GFR 49 L, Est GFR ( Amer) 59, Glucose 93, Calcium 8.9 I & O for Last 24 hours: Intake & Output 01/05/19 01/06/19 01/07/19 01/08/19 11:59 11:59 11:59 11:59 Intake Total 620 / 620 840 / 840 1090 / 1090 Output Total 450 / 450 800 / 800 Balance 170 / 170 840 / 840 290 / 290 Weight 141 lb 7.989 oz 138 lb 9 oz 142 lb 2 oz Assessment and Plan (1) Hip fracture Current visit: No Status: Acute Qualifiers: Encounter type: initial encounter Fracture type: closed Laterality: left Qualified Code(s): S72.002A - Fracture of unspecified part of neck of left femur, initial encounter for closed fracture Category: Medical Code(s): S72.009A - Fracture of unspecified part of neck of unspecified femur, initial encounter for closed fracture - Assessment and plan all Dx Assessment and Plan for all problems:: She is doing great. Discharge home tomorrow with home health. She will need BSC and rolling walker which care management will arrange. Ortho to provide recommendation for length of Lovenox therapy. Blood pressure high normal, will continue to monitor and adjust meds as outpatient if indicated. HGB 8.4 this morning which is stable, she is able to ambulate without dizziness. Will continue to follow as outpatient and transfuse if less than 7 or if she becomes symptomatic.
--- NOTE | 2019-01-08 20:27 | Discharge Summary ---
General - General Admission date:: 01/05/19 Discharge date: 01/09/19 HPI HPI: Patient was admitted to hospital due to fracture of her left hip after a fall at home due to dizziness upon standing. After cardiac and medical clearance for surgery patient was subjected to repeat ORIF of the left hip which was uncomplicated. She underwent standard postoperative wound care and was also placed on Lovenox for DVT prophylaxis. Plavix was continued because of her recent renal stenting as well as aspirin for antiplatelet therapy. Her blood counts were carefully monitored and although it did lower expectedly postoperatively stabilized this morning. PT worked with her. She was noted to have a couple of episodes of dizziness, HCTZ was discontinued, low-dose beta-blockers were continued and her blood pressure remained stable even though she did have a couple of dizzy spells with positioning she had no actual orthostatic hypotensive changes. She improved in relationship to oral intake and physical therapy participation and she will be transferred into swing bed today for ongoing PT, medical observation and supportive care. Hospital Course Hospital Course: Patient was transferred to swing status after surgery and physical therapy assessment. Has been tolerating physical therapy and occupational therapy daily during continued stay. Tolerating regular diet. Pain well controlled with Tylenol and ibuprofen with the rare use of morphine or oxycodone. Patient participated well and tolerated therapy with some improvement mobility. During hospitalization was maintained on Lovenox for DVT prophylaxis. Transition to high-dose aspirin for DVT prophylaxis home to complete total of 6 weeks post procedure. At this time patient medically stable to go home. Has family at home to assist with her care. Will arrange for home health with physical therapy to continue progress at home. Remains afebrile, normotensive, with no bleeding, shortness of breath, chest pain. Objective Vital signs: Temp Pulse Resp BP Pulse Ox 98.0 F 70 18 166/57 H 99 01/08/19 19:47 01/08/19 19:47 01/08/19 19:47 01/08/19 19:47 01/08/19 19:47 Narrative: Patient alert and oriented x3 - *Routine Neck Exam Present: supple. Absent: JVD, carotid bruit - *Routine Respiratory Exam Present: CTA bilaterally. Absent: accessory muscle use, rales, rhonchi, wheezes - *Routine Cardiovascular Exam Present: RRR. Absent: murmur, gallop, rubs - *Routine Extremities Exam Absent: edema, calf tenderness Presence of left-sided hip pain to palpation, surgical site clean dry and intact, fresh bandage in place no erythema, drainage Results Labs on day of discharge: Labs from last 24 hours 01/08/19 01/08/19 05:45 05:45 WBC 7.5 RBC 2.64 L Hgb 8.4 L Hct 26.6 L MCV 100.8 H MCH 31.8 H MCHC 31.5 L RDW 14.2 Plt Count 280 D MPV 8.9 Neut % (Auto) 55.1 Lymph % (Auto) 31.0 [place] % (Auto) 8.1 Eos % (Auto) 5.3 Baso % (Auto) 0.5 Neut # (Auto) 4.1 Lymph # (Auto) 2.3 [place] # (Auto) 0.6 Eos # (Auto) 0.4 Baso # (Auto) 0.0 Sodium 142 Potassium 4.2 Chloride 106 Carbon Dioxide 27 Anion Gap 13.2 BUN 16 Creatinine 1.06 H Estimated Creat Clear 37 Estimated GFR 49 L Est GFR ( Amer) 59 Glucose 93 Calcium 8.9 DS: Diagnosis - Discharge Diagnosis (1) Hip fracture Status: Acute Discharge Plan - Patient Discharge Instructions ACTIVITY: Ambulate as tolerated, Up with assistance DIET: continue same diet Additional Instructions: -- WBAT LLE, activity as tolerated with assistance and walker -- change dressing daily -- may shower, no tub baths -- f/u with Dr. Fish in 1 week Patient Instructions: DI for Hip Fracture, DI for Constipation, DI for Open Reduction Internal Fixation Surgery, DI for Surgical Site Infection - Follow up Plan Follow up with: Julianne Fish MD [Staff Physician] - 1 week Lalit Weiner MD [Primary Care Provider] - 1 week Disposition: Home Health Service Home Medications: Home Medications Medication Instructions Recorded Confirmed Type cholecalciferol (vitamin D3) 1,000 1,000 unit PO DAILY cap 01/14/18 01/05/19 History unit capsule ergocalciferol (vitamin D2) 2,500 2,500 unit PO DAILY cap 01/14/18 01/05/19 History unit capsule levothyroxine 100 mcg tablet 100 mcg PO DAILY 30 Days #30 tab 07/22/18 01/05/19 History ascorbic acid (vitamin C) 500 mg 500 mg PO DAILY cap 12/24/18 01/05/19 History capsule Atorvastatin Calcium [Atorvastatin 20 mg PO HS 12/31/18 01/05/19 History 20mg Tab] Clopidogrel Bisulfate [Plavix 75mg 75 mg PO DAILY 12/31/18 01/05/19 History Tab] Acetaminophen 500 mg PO BID 01/01/19 01/05/19 History Potassium Chloride [Klor-Con 10mEq 10 meq PO BID 01/01/19 01/05/19 History tab] Acetaminophen [Acetaminophen 325mg 650 mg PO Q4HP PRN tablet 01/08/19 Rx tab] Docusate Sodium [Docusate Sodium 100 mg PO DAILY capsule 01/08/19 Rx 100mg Cap] Pantoprazole Sodium [Protonix 40mg 40 mg PO HS 45 Days #45 tablet. 01/08/19 Rx tablet] Aspirin [Aspirin 325mg Tab] 325 mg PO DAILY 35 Days #35 tablet 01/09/19 Rx Carvedilol [Coreg 6.25mg 6.25 mg PO BID 90 Days #180 tablet 01/09/19 Rx Tablet] Prescriptions/Medication Reconciliation: New Acetaminophen [Acetaminophen 325mg tab] 650 mg PO Q4HP PRN tablet PRN Reason: Mild To Moderate Pain Docusate Sodium [Docusate Sodium 100mg Cap] 100 mg PO DAILY capsule Carvedilol [Coreg 6.25mg Tablet] 6.25 mg PO BID 90 Days #180 tablet Pantoprazole Sodium [Protonix 40mg tablet] 40 mg PO HS 45 Days #45 tablet. Aspirin [Aspirin 325mg Tab] 325 mg PO DAILY 35 Days #35 tablet Continue cholecalciferol (vitamin D3) 1,000 unit capsule 1,000 unit PO DAILY cap levothyroxine 100 mcg tablet 100 mcg PO DAILY 30 Days #30 tab ascorbic acid (vitamin C) 500 mg capsule 500 mg PO DAILY cap Clopidogrel Bisulfate [Plavix 75mg Tab] 75 mg PO DAILY Atorvastatin Calcium [Atorvastatin 20mg Tab] 20 mg PO HS Acetaminophen 500 mg PO BID Potassium Chloride [Klor-Con 10mEq tab] 10 meq PO BID Discontinued aspirin 81 mg tablet,delayed release 81 mg PO DAILY tab Carvedilol [Coreg 3.125mg Tablet] 3.125 mg PO BID No Action ergocalciferol (vitamin D2) 2,500 unit capsule 2,500 unit PO DAILY cap
--- NOTE | 2019-01-09 08:25 | Progress Note ---
Subjective Date: 01/09/19 Time: 08:00 Principal diagnosis: L hip fx Interval history: The patient feels well this morning, has improved significantly with therapy during swing bed admission. Anticipating discharge home today. PN: Obj Ex Vital signs: Temp Pulse Resp BP Pulse Ox 98.1 F 71 16 149/51 H 98 01/09/19 08:00 01/09/19 08:00 01/09/19 08:00 01/09/19 08:00 01/09/19 08:00 - Constitutional no acute distress, thin - Routine HEENT Exam Head: Present: normocephalic Eye: Present: EOMI ENT: Present: mucous membranes moist - Routine Neck Exam Present: supple - Routine Respiratory Exam Present: CTA bilaterally - Routine Cardiovascular Exam Present: RRR - Routine Abdominal Exam Present: soft - Routine Extremities Exam Present: pulses intact, normal capillary refill Comments: L hip incision c/d/i, dennis intact w/o active drainage; scant serous drainage on dressing +DF/PF/EHL LLE SILT distally LLE palpable pedal pulses LLE, foot warm calf soft, non-tender LLE Progress Note: A&P (1) Hip fracture Status: Acute Current Visit: No Assessment and Plan for All Diagnoses:: 88yo F POD 8 s/p DOV L femur w/cement augmentation + IMN femur -- ok to d/c home from ortho standpoint, do not believe patient needs additional anticoagulation. She is ambulating frequently and is on aspirin at baseline; recommend continuing aspirin. -- home health PT is arranged, continue WBAT LLE with walker at home -- ok to shower, change dressing after shower or as needed -- f/u 1 week in clinic
== END 2019-01-09 11:34 | disposition home health service (06) | DRG 536 ==
LOC: 2ND 11:33
PROVIDERS: ADMIT Internal Medicine Adolescent Medicine; ATTEND Internal Medicine Adolescent Medicine